=== PATIENT | female | born 1965 | race African-American/Black ===

== ENCOUNTER 2018-10-11 11:17 | Inpatient (IN) | payer OTHER ==
[2018-10-11 13:17] VITALS: BMI 31.1
--- NOTE | 2018-10-11 15:08 | HP ---
COWS - Scale Resting Pulse: 0= ID 80 or Below Sweatin=Flushed/Facial Moisture Restless Observation: 1= Difficult to Sit Still Pupil Size: 0= Normal to Room Light Bone or Joint Aches: 2= Severe Diffuse Aches Runny Nose/ Eye Tearin= Runny Nose/Eyes GI Upset > 30mins: 2= Nausea/Diarrhea Tremor Observation: 2= Slight Tremor Visible Yawning Observation: 2= >3x During Session Anxiety or Irritability: 2=Irritable/Anxious Goose Flesh Skin: 3=Piloerection COWS Score: 18 CIWA Score - Admission Criteria OASAS Guidelines: Admission for Medically Managed Detox: Requires at least one of the followin. CIWA greater than 12 2. Seizures within the past 24 hours 3. Delirium tremens within the past 24 hours 4. Hallucinations within the past 24 hours 5. Acute intervention needed for co occurring medical disorder 6. Acute intervention needed for co occurring psychiatric disorder 7. Severe withdrawal that cannot be handled at a lower level of care (continued vomiting, continued diarrhea, abnormal vital signs) requiring intravenous medication and/or fluids 8. Admission ROS S - HPI Chief Complaint: I need the help to stop the use of oxycodone. Allergies/Adverse Reactions: Allergies Allergy/AdvReac Type Severity Reaction Status Date / Time Penicillins AdvReac Severe Swelling Verified 10/11/18 12:55 History of Present Illness: pt is a 53yr old female with a history of oxycodone dependence seeking detox for treatment. Pt states she gets a Rx of oxycodone from a Dr. Sara Jacobo last prescribed on 09/27/2018 pt p/u from her pharmacy from [facility]. is unable to be contacted. Pt states she was abusing the oxy's and was brought to [facility] last night for withdrawals s/s. Pt was d/c this morning and referred to come to [facility] for detox. Exam Limitations: No Limitations - Ebola screening Have you traveled outside of the country in the last 21 days: No Have you had contact with anyone from an Ebola affected area: No Have you been sick,other than usual withdrawal symptoms: No Do you have a fever: No - Review of Systems Constitutional: Chills, Diaphoresis, Night Sweats, Changes in sleep EENT: reports: Nose Congestion, Dental Problems (missing teeth) Respiratory: reports: No Symptoms reported Cardiac: reports: Lightheadedness GI: reports: Diarrhea, Poor Fluid Intake, Vomiting, Abdominal cramping : reports: No Symptoms Reported Musculoskeletal: reports: Back Pain, Joint Pain, Muscle Weakness, Other (legs) Integumentary: reports: Sweating Neuro: reports: Headache, Tingling, Tremors Endocrine: reports: Excessive Sweating, Intolerance to Cold, Intolerance to Heat , Increased Hunger Hematology: reports: Blood Clots (on plavix) Psychiatric: reports: Judgement Intact, Mood/Affect Appropiate, Orientated x3, Agitated, Anxious Other Systems: Reviewed and Negative Patient History - Patient Medical History Hx Anemia: No Hx Asthma: Yes (albuterol) Hx Chronic Obstructive Pulmonary Disease (COPD): No Hx Cancer: No Hx Cardiac Disorders: Yes (on plavix for h/o blood clots) Hx Hypertension: No Hx Hypercholesterolemia: Yes (lipitor 10mg) Hx Pacemaker: No HX Cerebrovascular Accident: No Hx Seizures: No Hx Dementia: No Hx Diabetes: Yes (type 2 on metformin 500mg qdaily) Hx Gastrointestinal Disorders: No Hx Liver Disease: No Hx Genitourinary Disorders: No Hx Sexually Transmitted Disorders: No Hx Renal Disease (ESRD): No Hx Thyroid Disease: No Hx Human Immunodeficiency Virus (HIV): Yes (since age 39 o on current meds ) Hx Hepatitis C: No Hx Depression: No Hx Suicide Attempt: No Hx Bipolar Disorder: No Hx Schizophrenia: No Other Medical History: insomnia/anxiety - Patient Surgical History Past Surgical History: No - PPD History Previous Implant?: Yes Documented Results: Negative w/o proof PPD to be Administered?: Yes - Reproductive History Patient is a Female of Child Bearing Age (11 -55 yrs old): No - Smoking Cessation Smoking history: Current every day smoker Have you smoked in the past 12 months: Yes Aproximately how many cigarettes per day: 10 Hx Chewing Tobacco Use: No Initiated information on smoking cessation: Yes 'Breaking Loose' booklet given: 10/11/18 - Substance & Tx. History Hx Alcohol Use: No Hx Substance Use: Yes Substance Use Type: Heroin, Opiates Hx Substance Use Treatment: No - Substances abused Other Other (specify): OXYCODONE Substance route: Oral Frequency: Daily Amount used: 120 MG (4) 30 MG TAB Age of first use: 52 Date of last use: 10/10/18 Heroin Substance route: Inhalation Frequency: Daily Amount used: 10 bags Age of first use: 25 Date of last use: 10/10/18 Family Disease History - Family Disease History Family Disease History: Diabetes: Grandparent, Father, Mother (deseased), Brother, Sister Admission Physical Exam [facility] - Vital Signs Vital Signs: Vital Signs - 24 hr 10/11/18 10/11/18 13:09 14:56 Temperature 99.5 F 99.2 F Pulse Rate 80 80 Respiratory 17 17 Rate Blood Pressure 100/66 100/66 - Physical General Appearance: Yes: Appropriately Dressed, Moderate Distress, Obese, Tremorous, Irritable, Sweating, Anxious HEENTM: Yes: Hearing grossly Normal, Normal Voice, Nasal Congestion, Rhinorrhea Respiratory: Yes: Normal Breath Sounds, Rales, Wheezing Neck: Yes: No masses,lesions,Nodules Breast: Yes: Within Normal Limits Cardiology: Yes: Regular Rhythm, Regular Rate, S1, S2 Abdominal: Yes: Normal Bowel Sounds, Non Tender, Soft Genitourinary: Yes: Within Normal Limits Back: Yes: Normal Inspection Musculoskeletal: Yes: Back pain, Joint Stiffness, Muscle Pain Extremities: Yes: Non-Tender, Tremors Neurological: Yes: Fully Oriented, Alert, Normal Response Integumentary: Yes: Diaphoresis Lymphatic: Yes: Within Normal Limits - Diagnostic (1) Opioid dependence with withdrawal Current Visit: Yes Status: Chronic (2) H/O blood clots Current Visit: No Status: Chronic (3) Chronic leg pain Current Visit: Yes Status: Chronic Qualifiers: Laterality: bilateral Qualified Code(s): M79.604 - Pain in right leg; M79.605 - Pain in left leg; G89.29 - Other chronic pain (4) Nicotine dependence Current Visit: Yes Status: Chronic Qualifiers: Nicotine product type: cigarettes Substance use status: uncomplicated Qualified Code(s): F17.210 - Nicotine dependence, cigarettes, uncomplicated (5) HIV disease Current Visit: Yes Status: Chronic Comment: on current medication Cleared for Admission [facility] - Detox or Rehab [facility] Level of Care: Medically Managed Detox Regimen/Protocol: Methadone Breathalyzer - Breathalyzer Breathalyzer: 0 POC Urine test - Test device test lot number: [id number] Expiration date: 02/25/20 - Control test control: Yes - Result Urine Test Results: Negative - NO line present Urine Drug Screen - Test Device Lot number: [id number] Expiration date: 05/26/20 - Control Is test valid?: Yes - Results Drug screen NEGATIVE: No Urine drug screen results: FEN-Fentanyl, MOP-Opiates, OXY-Oxycodone, MTD- Methadone Inpatient Rehab Admission - Rehab Decision to Admit Inpatient rehab admission?: No
[2018-10-11] MEDS ORDERED: MENTHOL/PHENOL 1 EACH UD MM PRN (15:35)
[2018-10-11] MEDS ORDERED: hydrOXYzine PAMOATE 25 MG CAPSULE (FP) PO PRN (15:35)
[2018-10-11] MEDS ORDERED: MAGNESIUM CITRATE 300 ML BOTTLE PO PRN (15:35)
[2018-10-11] MEDS ORDERED: DICYCLOMINE HCL 10 MG CAPSULE PO PRN (15:35)
[2018-10-11] MEDS ORDERED: MELATONIN 5 MG TABLETS PO PRN (15:35)
[2018-10-11] MEDS ORDERED: cloNIDine HCL 0.1 MG TABLET PO PRN (15:35)
[2018-10-11] MEDS ORDERED: ACETAMINOPHEN 325 MG TABLET (FP) PO PRN (15:35)
[2018-10-11] MEDS ORDERED: MAG HYDROX/AL HYDROX/SIMETH 30 ML UNIT-DOSE CUP PO PRN (15:35)
[2018-10-11] MEDS ORDERED: MAGNESIUM HYDROX 2400MG/30ML ORAL SUSPENSION 30 ML CUP PO PRN (15:35)
[2018-10-11] MEDS ORDERED: IBUPROFEN 400 MG TABLET (FP) PO PRN ×2 (15:35)
[2018-10-11] MEDS ORDERED: BISMUTH SUBSALICYLATE 524 MG/30 ML UD PO PRN (15:35)
[2018-10-11] MEDS ORDERED: P-EPHED 60MG/TRIPROLIDI 2.5MG TABLET PO PRN (15:35)
[2018-10-11] MEDS ORDERED: ALBUTEROL SO4 2.5/IPRATROPIUM 0.5 INH SOL 3 ML VIAL.NEB. NEB ONE (16:15)
[2018-10-11] MEDS ORDERED: METHADONE HCL 10 MG TABLET (FOR DETOX USE ONLY) PO ONE ×2 (16:30→23:00)
[2018-10-11] MEDS: ALBUTEROL SO4 8 GM HFA INHALER IH SCH ×4 (16:48→23:18)
[2018-10-11] MEDS: BACLOFEN 10 MG TABLET (FP) PO SCH ×2 (16:49→23:18)
[2018-10-11] MEDS: ALBUTEROL SO4 2.5/IPRATROPIUM 0.5 INH SOL 3 ML VIAL.NEB. NEB PRN (19:31)
[2018-10-11] MEDS: clonazePAM 0.5 MG TABLET PO PRN (22:13)
[2018-10-11] MEDS: THIAMINE HCL 100 MG TABLET (FP) PO SCH (22:14)
[2018-10-12] MEDS: ALBUTEROL SO4 8 GM HFA INHALER IH SCH ×4 (05:27→12:31)
[2018-10-12] MEDS: ACETAMINOPHEN 325 MG TABLET (FP) PO PRN ×2 (07:11→19:19)
[2018-10-12] MEDS: BACLOFEN 10 MG TABLET (FP) PO SCH ×3 (07:19→23:09)
[2018-10-12] MEDS ORDERED: METHADONE HCL 10 MG TABLET (FOR DETOX USE ONLY) PO ONE (10:00)
[2018-10-12] MEDS: PRENATAL VITAMINS W/ FOLIC ACID TABLET (FP) PO SCH (10:40)
[2018-10-12] MEDS: CLOPIDOGREL BISULFATE 75 MG TABLET (FP) PO SCH (10:40)
[2018-10-12] MEDS: NICOTINE 21 MG/24 HOURS TOPICAL PATCH TD SCH (10:41)
[2018-10-12] MEDS: PATIENT'S OWN MEDICATION (NON-FORMULARY) (Darunavir/Cob/Emtri/Tenof Alaf [Symtuza 800-150- PO SCH (10:41)
[2018-10-12 10:55] LABS: ALBUMIN 3.2 g/dl (3.4-5.0); ALK PHOS 86 U/L (45-117); ANION GAP 2 MMOL/L (8-16); BILIRUBIN,TOTAL 0.5 mg/dL (0.2-1); BLOOD UREA NITROGEN 13 mg/dL (7-18); CALCIUM 8.9 mg/dL (8.5-10.1); CHLORIDE 104 mmol/L (98-107); CO2 32 mmol/L (21-32); CREATININE 0.6 mg/dL (0.55-1.3); GLUCOSE,RANDOM 108 mg/dL (74-106); POTASSIUM 4.1 mmol/L (3.5-5.1); SGOT/AST 20 U/L (15-37); SGPT/ALT 23 U/L (13-61); SODIUM 138 mmol/L (136-145); TOT PROT 6.6 g/dl (6.4-8.2)
[2018-10-12 11:02] LABS: HEMATOCRIT 44.2 % (32.4-45.2); HEMOGLOBIN 14.6 GM/dL (10.7-15.3); MCH 32.5 pg (25.7-33.7); MCHC 33.1 g/dl (32.0-36.0); MEAN CELL VOLUME 98.2 fl (80-96); MEAN PLT VOLUME 9.1 fl (7.5-11.1); PLATELET COUNT 187 K/MM3 (134-434); RDW 13.6 % (11.6-15.6); WHITE BLOOD COUNT 9.5 K/mm3 (4.0-10.0)
--- NOTE | 2018-10-12 12:16 | EKG ---
Test Reason : Blood Pressure : / mmHG Vent. Rate : 093 BPM Atrial Rate : 093 BPM P-R Int : 150 ms QRS Dur : 084 ms QT Int : 374 ms P-R-T Axes : 066 038 057 degrees QTc Int : 465 ms NORMAL SINUS RHYTHM NORMAL ECG NO PREVIOUS ECGS AVAILABLE Confirmed by JARON DAVENPORT MD ([id number]) on 10/12/2018 12:16:35 PM Referred By: Confirmed By:JARON DAVENPORT MD
--- NOTE | 2018-10-12 12:38 | PN ---
S COWS - Scale Resting Pulse: 2= VT 101-120 Sweatin=Flushed/Facial Moisture Restless Observation: 1= Difficult to Sit Still Pupil Size: 0= Normal to Room Light Bone or Joint Aches: 2= Severe Diffuse Aches Runny Nose/ Eye Tearin= Nasal Congestion GI Upset > 30mins: 0= None Tremor Observation of Outstretched Hands: 2= Slight Tremor Visible Yawning Observation: 2= >3x During Session Anxiety or Irritability: 2=Irritable/Anxious Goose Flesh Skin: 3=Piloerection COWS Score: 17 BHS Progress Note (SOAP) Subjective: restless chills sweats dry skin couple of bumps/rash to my left forearm shakes Objective: 10/12/18 12:35 Vital Signs Temperature 98.2 F 10/12/18 10:51 Pulse Rate 101 H 10/12/18 10:51 Respiratory Rate 18 10/12/18 10:51 Blood Pressure 114/77 10/12/18 10:51 O2 Sat by Pulse Oximetry (%) Laboratory Tests 10/11/18 10/11/18 10/12/18 15:41 16:46 05:25 WBC RBC Hgb Hct MCV MCH MCHC RDW Plt Count MPV Sodium Potassium Chloride Carbon Dioxide Anion Gap BUN Creatinine Creat Clearance w eGFR POC Glucometer 61 124 81 Random Glucose Calcium Total Bilirubin AST ALT Alkaline Phosphatase Total Protein Albumin RPR Titer 10/12/18 10/12/18 10/12/18 07:00 07:00 07:00 WBC 9.5 RBC 4.50 Hgb 14.6 Hct 44.2 MCV 98.2 H MCH 32.5 MCHC 33.1 RDW 13.6 Plt Count 187 MPV 9.1 Sodium 138 Potassium 4.1 Chloride 104 Carbon Dioxide 32 Anion Gap 2 L BUN 13 Creatinine 0.6 Creat Clearance w eGFR 104.57 POC Glucometer Random Glucose 108 H Calcium 8.9 Total Bilirubin 0.5 AST 20 ALT 23 Alkaline Phosphatase 86 Total Protein 6.6 Albumin 3.2 L RPR Titer Nonreactive labs noted aaox3 ambulating no acute distress Assessment: 10/12/18 12:35 withdrawal sx skin assessed noticed a couple of red bumps to left forearm, pt c/o of some itching. no other bumps to rest of body noted. Plan: continue detox increase fluids lidex cream ordered derrick-hydrin
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
[2018-10-12] MEDS: AMMONIUM LACTATE 12% LOTION 225 GM BOTTLE TP SCH ×2 (13:25→22:05)
[2018-10-12] MEDS: FLUOCINONIDE 0.05% CREAM (15 GM TUBE) TP SCH ×2 (13:26→22:06)
[2018-10-12] MEDS: ONDANSETRON *ODT* 4 MG TABLET SL PRN (14:32)
[2018-10-12] MEDS ORDERED: NICOTINE POLACRILEX 4 MG GUM BUC PRN (17:47)
--- NOTE | 2018-10-12 17:57 | PN ---
S Progress Note Note: Patient requested NCRT currently smokes 1 pack of cigarettes per day.
[2018-10-12] MEDS: ALBUTEROL SO4 2.5/IPRATROPIUM 0.5 INH SOL 3 ML VIAL.NEB. NEB PRN (19:24)
[2018-10-12] MEDS: clonazePAM 0.5 MG TABLET PO PRN (22:04)
[2018-10-12] MEDS: ALBUTEROL SO4 8 GM HFA INHALER IH PRN (22:04)
[2018-10-12] MEDS: THIAMINE HCL 100 MG TABLET (FP) PO SCH (22:05)
[2018-10-13] MEDS: ACETAMINOPHEN 325 MG TABLET (FP) PO PRN ×2 (02:27→10:14)
[2018-10-13] MEDS: ALBUTEROL SO4 2.5/IPRATROPIUM 0.5 INH SOL 3 ML VIAL.NEB. NEB PRN (02:37)
[2018-10-13] MEDS: FLUOCINONIDE 0.05% CREAM (15 GM TUBE) TP SCH ×3 (07:00→23:50)
[2018-10-13] MEDS: BACLOFEN 10 MG TABLET (FP) PO SCH ×3 (07:13→23:51)
[2018-10-13] MEDS ORDERED: METHADONE HCL 10 MG TABLET (FOR DETOX USE ONLY) PO ONE (10:00)
[2018-10-13] MEDS: PRENATAL VITAMINS W/ FOLIC ACID TABLET (FP) PO SCH (10:09)
[2018-10-13] MEDS: CLOPIDOGREL BISULFATE 75 MG TABLET (FP) PO SCH (10:09)
[2018-10-13] MEDS: NICOTINE 21 MG/24 HOURS TOPICAL PATCH TD SCH (10:10)
[2018-10-13] MEDS: AMMONIUM LACTATE 12% LOTION 225 GM BOTTLE TP SCH ×2 (10:10→23:50)
[2018-10-13] MEDS: PATIENT'S OWN MEDICATION (NON-FORMULARY) (Darunavir/Cob/Emtri/Tenof Alaf [Symtuza 800-150- PO SCH (10:11)
[2018-10-13] MEDS: ALBUTEROL SO4 8 GM HFA INHALER IH PRN (10:12)
[2018-10-13] MEDS ORDERED: guaiFENesin 200 MG/10 ML 10 ML UNIT-DOSE CUPS PO PRN (10:36)
[2018-10-13] MEDS ORDERED: FLUTICASONE PROP 0.05% 16 GM NASAL SPRAY NS SCH (10:45)
[2018-10-13] MEDS: ONDANSETRON *ODT* 4 MG TABLET SL PRN (12:19)
--- NOTE | 2018-10-13 13:54 | PN ---
BHS COWS - Scale Resting Pulse: 2= NE 101-120 Sweatin= Chills/Flushing Restless Observation: 1= Difficult to Sit Still Pupil Size: 0= Normal to Room Light Bone or Joint Aches: 1= Mild Discomfort Runny Nose/ Eye Tearin= Runny Nose/Eyes GI Upset > 30mins: 0= None Tremor Observation of Outstretched Hands: 0= None Yawning Observation: 1= 1-2x During Session Anxiety or Irritability: 2=Irritable/Anxious Goose Flesh Skin: 0=Smooth Skin COWS Score: 10 BHS Progress Note (SOAP) Subjective: c/o cough, seasonal allergies, chills, sweats, body aches Objective: 10/13/18 13:49 Vital Signs Temperature 98.7 F 10/13/18 11:36 Pulse Rate 101 H 10/13/18 11:36 Respiratory Rate 20 10/13/18 11:36 Blood Pressure 113/67 10/13/18 11:36 O2 Sat by Pulse Oximetry (%) 80 L 10/13/18 03:07 Laboratory Last Values WBC 9.5 K/mm3 (4.0-10.0) 10/12/18 07:00 RBC 4.50 M/mm3 (3.60-5.2) 10/12/18 07:00 Hgb 14.6 GM/dL (10.7-15.3) 10/12/18 07:00 Hct 44.2 % (32.4-45.2) 10/12/18 07:00 MCV 98.2 fl (80-96) H 10/12/18 07:00 MCH 32.5 pg (25.7-33.7) 10/12/18 07:00 MCHC 33.1 g/dl (32.0-36.0) 10/12/18 07:00 RDW 13.6 % (11.6-15.6) 10/12/18 07:00 Plt Count 187 K/MM3 (134-434) 10/12/18 07:00 MPV 9.1 fl (7.5-11.1) 10/12/18 07:00 Sodium 138 mmol/L (136-145) 10/12/18 07:00 Potassium 4.1 mmol/L (3.5-5.1) 10/12/18 07:00 Chloride 104 mmol/L (98-107) 10/12/18 07:00 Carbon Dioxide 32 mmol/L (21-32) 10/12/18 07:00 Anion Gap 2 MMOL/L (8-16) L 10/12/18 07:00 BUN 13 mg/dL (7-18) 10/12/18 07:00 Creatinine 0.6 mg/dL (0.55-1.3) 10/12/18 07:00 Creat Clearance w eGFR 104.57 (>60) 10/12/18 07:00 POC Glucometer 83 UNITS (80-120) 10/13/18 06:20 Random Glucose 108 mg/dL (74-106) H 10/12/18 07:00 Calcium 8.9 mg/dL (8.5-10.1) 10/12/18 07:00 Total Bilirubin 0.5 mg/dL (0.2-1) 10/12/18 07:00 AST 20 U/L (15-37) 10/12/18 07:00 ALT 23 U/L (13-61) 10/12/18 07:00 Alkaline Phosphatase 86 U/L (45-117) 10/12/18 07:00 Total Protein 6.6 g/dl (6.4-8.2) 10/12/18 07:00 Albumin 3.2 g/dl (3.4-5.0) L 10/12/18 07:00 RPR Titer Nonreactive (NONREACTIVE) 10/12/18 07:00 labs notes Aox3 no acute distress + rhinorrhea + cough no adventitious breath sounds full ROm ambulating in the unit withdrawal sx cough increase po fluids guefinessin prn flonase prn continue detox continue to monitor
--- NOTE | 2018-10-13 23:27 | PN ---
[facility] Progress Note Note: ASKED TO SEE PATIENT FOR HYPOXIA. O2 SAT 50'S, FEBRILE, LETHARGIC. PATIENT IS A POOR HISTORIAN AT THIS TIME DUE TO CHANGE IN MENTAL STATUS, LETHARGIC, PARTIALLY RESPONSIVE. PER STAFF 1 HOUR PRIOR CLIENT WAS NOTED OOB, AMBULATING , NAD A/OX3 BUT APPEARED "OVER MEDICATED" Vital Signs Temperature 102.2 F H 10/13/18 23:20 Pulse Rate 130 H 10/13/18 23:20 Respiratory Rate 20 10/13/18 23:20 Blood Pressure 134/70 10/13/18 23:20 O2 Sat by Pulse Oximetry (%) 80 L 10/13/18 03:07 Laboratory Tests 10/11/18 10/11/18 10/12/18 15:41 16:46 05:25 WBC RBC Hgb Hct MCV MCH MCHC RDW Plt Count MPV Sodium Potassium Chloride Carbon Dioxide Anion Gap BUN Creatinine Creat Clearance w eGFR POC Glucometer 61 124 81 Random Glucose Calcium Total Bilirubin AST ALT Alkaline Phosphatase Total Protein Albumin RPR Titer 10/12/18 10/12/18 10/12/18 07:00 07:00 07:00 WBC 9.5 RBC 4.50 Hgb 14.6 Hct 44.2 MCV 98.2 H MCH 32.5 MCHC 33.1 RDW 13.6 Plt Count 187 MPV 9.1 Sodium 138 Potassium 4.1 Chloride 104 Carbon Dioxide 32 Anion Gap 2 L BUN 13 Creatinine 0.6 Creat Clearance w eGFR 104.57 POC Glucometer Random Glucose 108 H Calcium 8.9 Total Bilirubin 0.5 AST 20 ALT 23 Alkaline Phosphatase 86 Total Protein 6.6 Albumin 3.2 L RPR Titer Nonreactive 10/12/18 10/13/18 10/13/18 16:25 06:20 17:02 WBC RBC Hgb Hct MCV MCH MCHC RDW Plt Count MPV Sodium Potassium Chloride Carbon Dioxide Anion Gap BUN Creatinine Creat Clearance w eGFR POC Glucometer 103 83 102 Random Glucose Calcium Total Bilirubin AST ALT Alkaline Phosphatase Total Protein Albumin RPR Titer 10/13/18 23:17 WBC RBC Hgb Hct MCV MCH MCHC RDW Plt Count MPV Sodium Potassium Chloride Carbon Dioxide Anion Gap BUN Creatinine Creat Clearance w eGFR POC Glucometer 276 Random Glucose Calcium Total Bilirubin AST ALT Alkaline Phosphatase Total Protein Albumin RPR Titer SEEN LYING IN BED AROUSABLE TO CALL OF NAME BUT IN/OUT OF RESPONSIVENESS TO VERBAL STIMULI X2 HEENT-NCAT ,PERRLA, EOMI, MMM NECK- NEG LAD CV- RRR LUNGS- +COURSE BREATH SOUNDS- CLIENT NOTED WITH WET COUGH/PRODUCTIVE THICK YELLOW SPUTUM- NON REBREATHER MASK O2 SAT 96% +USE OF ACCESSORY MUSCLES SKIN- HOT, MOIST, DIAPHORETIC A- R/O PNA, PE P-TRANSFER TO [facility] FOR EVAL REPORT GIVEN TO RESIDENT CHU ZAVALA
[2018-10-13] MEDS: THIAMINE HCL 100 MG TABLET (FP) PO SCH (23:51)
[2018-10-14 06:55] VITALS: BP 134/70; PULSE 130; TEMP 102.2
[2018-10-14] MEDS ORDERED: METHADONE HCL 10 MG TABLET (FOR DETOX USE ONLY) PO ONE (10:00)
[2018-10-15] MEDS ORDERED: METHADONE HCL 5 MG TABLET (FOR DETOX USE ONLY) PO ONE (06:00)
== END 2018-10-14 07:52 | disposition short-term general hospital (02) | DRG 773 ==
LOC: YASAS 11:17 → Y6N 15:54
PROVIDERS: ADMIT Surgery; ATTEND Surgery
PROC: HZ2ZZZZ Detoxification Services for Substance Abuse Treatment (ICD-10-PCS; principal; 2018-10-11)
DX: F11.23 Opioid dependence with withdrawal (principal); F17.210 Nicotine dependence, cigarettes, uncomplicated; F32.5 Major depressive disorder, single episode, in full remission; F43.10 Post-traumatic stress disorder, unspecified; F19.282 Other psychoactive substance dependence with psychoactive substance-induced sleep disorder; Z21 Asymptomatic human immunodeficiency virus [HIV] infection status; E78.5 Hyperlipidemia, unspecified; E11.9 Type 2 diabetes mellitus without complications; R09.02 Hypoxemia; R53.83 Other fatigue; R41.82 Altered mental status, unspecified; R05 Cough; M79.604 Pain in right leg; M79.605 Pain in left leg; G89.29 Other chronic pain; E66.9 Obesity, unspecified; Z68.31 Body mass index [BMI] 31.0-31.9, adult; Z98.84 Bariatric surgery status; Z79.01 Long term (current) use of anticoagulants; Z86.711 Personal history of pulmonary embolism; Z88.0 Allergy status to penicillin
CPT/HCPCS: 36415; 80053; 82962; 85027; 86593; 93005; 93010; 94640; J0475; Q0162

== ENCOUNTER 2018-10-13 23:56 | Inpatient (IN) | payer OTHER ==
--- NOTE | 2018-10-14 00:26 | PDOC ---
History of Present Illness <Stephenie Abbott - Last Filed: 10/14/18 03:06> - History of Present Illness Initial Comments: 10/14/18 00:18 53 yo F with h/o asthma, DM, HLD, HIV, mood disorder, blood clot (unspecified) BIBEMS from [facility] ( 2 [facility]) opioid dependence on Methadone maintenance who p/ w SOB, AMS. Received phone endorsement from outside rehabilitation facility. Patient was noted to be hypoxic 50's O2 sat on RA, imrpoved to 96 % NRB, Also noted to be febrile, with coarse lung sounds, and BS~276. [facility] 1000PM (10/14/18) as noted by staff, was up and walking today without difficulty. Patient at bedside partially verbal, poor historian, somnolent on encounter. PMHx: as noted above ROS: as noted SHx: Polysubstance abuse, nicotine dependence, methadone maintenance, in detox ( 10/11-10/13/18) Allergies: PCN <Andre Osborn - Last Filed: 10/14/18 04:24> - General Stated Complaint: SHORTNESS OF BREATH Time Seen by Provider: 10/14/18 00:12 Past History <Stephenie Abbott - Last Filed: 10/14/18 03:06> - Past Medical History Anemia: No Asthma: Yes (albuterol) Cancer: No Cardiac Disorders: Yes (on plavix for h/o blood clots) CVA: No COPD: No Dementia: No Diabetes: Yes (type 2 on metformin 500mg qdaily) GI Disorders: No Disorders: No HTN: No Hypercholesterolemia: Yes (lipitor 10mg) Kidney Stones: No Liver Disease: No Seizures: No Thyroid Disease: No - Reproductive History PID: No - Suicide/Smoking/Psychosocial Hx Smoking History: Current every day smoker Have you smoked in the past 12 months: Yes Number of Cigarettes Smoked Daily: 10 'Breaking Loose' booklet given: 10/11/18 Hx Alcohol Use: No Drug/Substance Use Hx: Yes Substance Use Type: Heroin, Opiates Hx Substance Use Treatment: No <Andre Osborn - Last Filed: 10/14/18 04:24> - Past Medical History Allergies/Adverse Reactions: Allergies Allergy/AdvReac Type Severity Reaction Status Date / Time Penicillins AdvReac Severe Swelling Verified 10/11/18 12:55 Home Medications: Ambulatory Orders Albuterol Sulfate Inhaler - [Ventolin Hfa Inhaler -] 2 inh PO Q4H 10/11/18 Cholecalciferol (Vitamin D3) [Vitamin D3] 2,000 unit PO DAILY 10/11/18 Clopidogrel Bisulfate [Plavix] 75 mg PO DAILY 10/11/18 Darunavir/Cob/Emtri/Tenof Alaf [Symtuza 362-106-920-10 mg Tab] 1 each PO DAILY 10/11/18 Metformin HCl [Metformin HCl ER] 500 mg PO DAILY 10/11/18 Multivitamin,Therapeutic [Thera] 1 each PO DAILY 10/11/18 Trazodone HCl 100 mg PO HS 10/11/18 Trazodone HCl 300 mg PO HS 10/11/18 Review of Systems - Review of Systems Comments:: 10/14/18 00:34 Unable to obtain 13 point ROS inspection d/t AMS. <Andre Osborn - Last Filed: 10/14/18 04:24> *Physical Exam - Vital Signs Last Vital Signs Temp Pulse Resp BP Pulse Ox 100.3 F H 134 H 20 132/83 98 10/14/18 00:10 10/14/18 00:10 10/14/18 00:10 10/14/18 00:10 10/14/18 00:10 <Stephenie Abbott - Last Filed: 10/14/18 03:06> - Physical Exam Comments: 10/14/18 00:34 GENERAL: Awake, Somnolent, but responsive to verbal stimuli, oriented to person and place, partially follows commands. HEAD: No signs of trauma, normocephalic, atraumatic EYES: PERRLA, EOMI, sclera anicteric, conjunctiva clear ENT: Auricles normal inspection, hearing grossly normal, nares patent, oropharynx clear without exudates. Moist mucosa NECK: Normal ROM, supple, no lymphadenopathy, JVD, or masses LUNGS: Coarse lung sounds throughout, snoring respirations. Diffuse wheezing. HEART: Regular rate and rhythm, normal S1 and S2, no murmurs, rubs or gallops, peripheral pulses normal and equal bilaterally. ABDOMEN: Soft, nontender, normoactive bowel sounds. No guarding, no rebound. No masses EXTREMITIES : Normal inspection, Normal range of motion, no edema. No clubbing or cyanosis. NEUROLOGICAL: Cranial nerves II through XII grossly intact. Mumbled/garbled speech, no focal sensorimotor deficits SKIN: Warm, Dry, normal turgor, no rashes or lesions noted ABDOMEN: Soft, nontender, normoactive bowel sounds. No guarding, no rebound. No masses EXTREMITIES : Normal inspection, Normal range of motion, no edema. No clubbing or cyanosis. <Andre Osborn - Last Filed: 10/14/18 04:24> ED Treatment Course - LABORATORY CBC & Chemistry Diagram: 10/14/18 01:15 10/14/18 01:15 - ADDITIONAL ORDERS Additional order review: Laboratory Results 10/14/18 10/14/18 10/14/18 01:15 01:15 01:15 PT with INR INR PTT (Actin FS) 29.1 VBG pH 7.32 POC VBG pCO2 67.1 H POC VBG pO2 58.9 H VBG HCO3 33.5 H VBG O2 Sat (Emeterio) 86.8 H VBG Base Excess 5.2 H Sodium 135 L Potassium 4.8 Chloride 99 Carbon Dioxide 33 H Anion Gap 3 L BUN 16 Creatinine 0.7 Creat Clearance w eGFR 87.53 Random Glucose 88 Lactic Acid Calcium 8.8 Magnesium Total Bilirubin 0.4 AST 33 ALT 28 Alkaline Phosphatase 83 LD Total 227 Creatine Kinase Creatine Kinase Index CK-MB (CK-2) Troponin I B-Natriuretic Peptide Total Protein 7.6 Albumin 3.6 10/14/18 10/14/18 10/14/18 01:15 01:15 01:15 PT with INR 12.50 INR 1.06 PTT (Actin FS) VBG pH POC VBG pCO2 POC VBG pO2 VBG HCO3 VBG O2 Sat (Emeterio) VBG Base Excess Sodium Potassium Chloride Carbon Dioxide Anion Gap BUN Creatinine Creat Clearance w eGFR Random Glucose Lactic Acid 0.8 Calcium Magnesium 2.0 Total Bilirubin AST ALT Alkaline Phosphatase LD Total Creatine Kinase 596 H Creatine Kinase Index 0.9 CK-MB (CK-2) 5.9 H Troponin I 1.25 H* B-Natriuretic Peptide 317.2 H Total Protein Albumin 10/14/18 01:15 RBC 4.48 MCV 96.9 H MCHC 33.3 RDW 13.5 MPV 8.4 Neutrophils % 78.9 Lymphocytes % 10.3 Monocytes % 10.1 Eosinophils % 0.2 Basophils % 0.5 - Medications Given in the ED: ED Medications Discontinued Medications Generic Name Dose Route Start Last Admin Trade Name Barbi PRN Reason Stop Dose Admin Acetaminophen 1,000 mg 10/14/18 01:51 10/14/18 01:53 Ofirmev Injection - IVPB 10/14/18 01:52 1,000 mg ONCE ONE Administration Sodium Chloride 500 mls @ 500 mls/hr 10/14/18 00:53 10/14/18 01:25 Normal Saline - IV 10/14/18 01:52 500 mls/hr ASDIR STA Administration Vancomycin HCl 1,000 mg/ 250 mls @ 250 mls/hr 10/14/18 01:27 10/14/18 02:13 Dextrose IVPB 10/14/18 02:26 250 mls/hr ONCE ONE Administration Protocol Morphine Sulfate 2 mg 10/14/18 02:18 10/14/18 02:58 Morphine Injection - IVPUSH 10/14/18 02:19 2 mg ONCE ONE Administration Naloxone HCl 0.4 mg 10/14/18 01:48 10/14/18 02:13 Narcan - IVPUSH 10/14/18 01:49 0.4 mg ONCE ONE Administration <Stephenie Abbott - Last Filed: 10/14/18 03:06> - LABORATORY CBC & Chemistry Diagram: 10/14/18 01:15 10/14/18 01:15 - RADIOLOGY Radiology Studies Ordered: 10/14/18 03:16 Patient Information: : 1965 Order Type: Preliminary Name: LAKSHMI BLACKWOOD Sex: F Study Description: CT CTA CHEST Modality: CT Location: [facility] Referring Physician: LUCAS SAGE Comments: Ollie Francisco MD wrote on Oct 14, 2018 at 03:11 AM: Referring Physician: LUCAS SAGE Patient Name: MERCED MARTINS THIS IS A PRELIMINARY REPORT FROM [facility] DATE OF SERVICE: 2018-10-14 02:44:31 IMAGES: [id number] EXAM: CHEST CTA HISTORY: Concern for pulmonary embolism COMPARISON: None. FINDINGS: Heart:: There are subpleural bullous changes Pericardium: not thickened Thoracic aorta and great vessels: Normal Superior vena cava and inferior vena cava: Normal CONFIDENTIALITY NOTICE: This information is intended only for the use of the recipient(s) named above. If you are not the intended recipient, or a person responsible for delivering it to the intended recipient, you are hereby notified that any disclosure, copying, distribution or use of any of the information contained in or attached to this transmission is STRICTLY PROHIBITED. If you have received this transmission in error, please immediately notify Imaging Occupational Health Physiotherapist and destroy the original transmission and its attachments without saving them in any manner [address] [facility] [address] [place] [address] Phone: [phone] ([phone]) Fax: Email: [email or web address]: [email or web address] Patient Information: : 1965 Order Type: Preliminary Name: LAKSHMI BLACKWOOD Sex: F Study Description: CT CTA CHEST Modality: CT Location: [facility] Referring Physician: LUCAS SAGE Pulmonary arteries: Main pulmonary artery segment measures 3.7 cm transversely which is enlarged. There are no pulmonary artery filling defects Thoracic esophagus: Normal Mediastinal lymph nodes: Normal Central airways: Normal Lungs: clear without focal consolidation Pleural spaces: Normal with no pneumothorax or pleural fluid Chest wall: Normal Superior abdomen: Normal IMPRESSION: Enlargement of the main pulmonary artery suggests a component of pulmonary artery hypertension. However, there are no filling defects or evidence for pulmonary embolism One or more of the following dose reduction techniques were used: automated exposure control, adjustment of the mA and/or kV according to patient size, use of iterative reconstructive technique. THIS DOCUMENT HAS BEEN ELECTRONICALLY SIGNED CONFIDENTIALITY NOTICE: This information is intended only for the use of the recipient(s) named above. If you are not the intended recipient, or a person responsible for delivering it to the intended recipient, you are hereby notified that any disclosure, copying, distribution or use of any of the information contained in or attached to this transmission is STRICTLY PROHIBITED. If you have received this transmission in error, please immediately notify Imaging Occupational Health Physiotherapist and destroy the original transmission and its attachments without saving them in any manner [address] [place] [address] [place] [address] Phone: [phone] ([phone]) Fax: Email: [email or web address]: [email or web address] Patient Information: : 1965 Order Type: Preliminary Name: LAKSHMI BLACKWOOD Sex: F Study Description: CT CTA CHEST Modality: CT Location: [facility] Referring Physician: LUCAS Francisco MD 10/14/2018 03:10 ISMA [place]. Please call Imaging Occupational Health Physiotherapist [phone] ([phone]) with questions. 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 EMS BS~276. Temp 100/3, HR 134, 20 RR, 98 % O2 on NRB, BP 132/83. Awake, Somnolent, but arousable and responsive to verbal stimuli, oriented to person and place, partially follows commands. Coarse lung sounds throughout, snoring respirations. Diffuse wheezing. ACS/IA r/o. PERC + PE, Wells score moderate risk PE. CTA r/o PE. Will consider possible overdose or ingestion, CHF, PNA, asthma/COPD. Will assess for cardiac dysarrythmias, hypoglycemia, electrolyte abnml, metabolic and toxic derangements, toxic or metabolic encephalopathy. acid-base disturbances, infection. Patient with known HIV. Will consider opportunistic infection. ED Course: CTA CHEST NS 500 NS 10/14/18 00:49 EKG: Sinus tachycardia HR 125, incomplete RBBB, Nml interval duration and axis. Nml R wave progression. Absent Q waves. 10/14/18 01:00 Patient hypoxic, AMS, tachycardic, plan to admit 10/14/18 01:28 10/14/18 02:18 Laboratory Tests 04/20/19 04/20/19 04/20/19 01:15 01:15 01:15 WBC 12.0 H Hgb 14.5 Hct 43.4 Plt Count 195 VBG pH POC VBG pCO2 POC VBG pO2 BUN Creatinine Lactic Acid 0.8 Creatine Kinase 596 H B-Natriuretic Peptide 317.2 H 10/14/18 10/14/18 01:15 01:15 WBC Hgb Hct Plt Count VBG pH 7.32 POC VBG pCO2 67.1 H POC VBG pO2 58.9 H BUN 16 Creatinine 0.7 Lactic Acid Creatine Kinase B-Natriuretic Peptide 10/14/18 02:18 Patient Awake, alert, agitated, following narcan 0.4 10/14/18 02:20 Troponin 1.25 Called Cardiology service [phone]. Dr. Beyer sales and production manager per answering service. Awaiting call back 10/14/18 02:27 Dr. Beyer agrees with management, CTA 100 mg Lovenox 10/14/18 02:30 Laboratory Tests 10/14/18 01:15 Creatine Kinase 596 H Creatine Kinase Index 0.9 CK-MB (CK-2) 5.9 H Troponin I 1.25 H* 10/14/18 03:16 CT CHEST: Enlargement of the main pulmonary artery suggests a component of pulmonary artery hypertension. However, there are no filling defects or evidence for pulmonary embolism 10/14/18 03:44 Pt. endorsed to medicine Admitted. 10/14/18 04:24 Patient refuses ABG <Andre Osborn - Last Filed: 10/14/18 04:24> *DC/Admit/Observation/Transfer - Discharge Dispostion Decision to Admit order: Yes <Stephenie Abbott - Last Filed: 10/14/18 03:06> - Discharge Dispostion Decision to Admit order: Yes <Andre Osborn - Last Filed: 10/14/18 04:24> Diagnosis at time of Disposition: Hypoxia, Pneumonia, HIV disease Altered mental state Qualifiers: Altered mental status type: somnolence Qualified Code(s): R40.0 - Somnolence - Discharge Dispostion Condition at time of disposition: Guarded
[2018-10-14] MEDS ORDERED: SODIUM CHLORIDE 500 ML IV STA (00:53)
[2018-10-14] MEDS ORDERED: ACETAMINOPHEN INJECTION 100 ML IVPB ONE (01:26)
[2018-10-14] MEDS ORDERED: VANCOMYCIN 1,000 MG in DEXTROSE 5%-WATER - 250 ML IVPB ONE (01:27)
[2018-10-14 01:32] LABS: BASO % 0.5 % (0-2.0); EOS % 0.2 % (0-4.5); HEMATOCRIT 43.4 % (32.4-45.2); HEMOGLOBIN 14.5 GM/dL (10.7-15.3); LYMPH % 10.3 % (8-40); MCH 32.3 pg (25.7-33.7); MCHC 33.3 g/dl (32.0-36.0); MEAN CELL VOLUME 96.9 fl (80-96); MEAN PLT VOLUME 8.4 fl (7.5-11.1); MONO % 10.1 % (3.8-10.2); NEUT % 78.9 % (42.8-82.8); PLATELET COUNT 195 K/MM3 (134-434); RBC 4.48 M/mm3 (3.60-5.2); RDW 13.5 % (11.6-15.6)
[2018-10-14 01:37] LABS: VENOUS PC02 67.1 mmHg (41-51); VENOUS PH 7.32 (7.31-7.41); VENOUS PO2 58.9 mmHg (30-40)
[2018-10-14 01:45] LABS: INR 1.06 (0.83-1.09); PROTHROMBIN TIME (PATIENT) 12.5 SEC (9.7-13.0)
[2018-10-14] MEDS ORDERED: NALOXONE HCL 0.4 MG/ML VIAL IVPUSH ONE ×2 (01:48→04:40)
[2018-10-14] MEDS ORDERED: ACETAMINOPHEN 1000 MG/100 ML VIAL (NON FORMULARY) IVPB ONE (01:51)
[2018-10-14] MEDS ORDERED: NALOXONE HCL 0.4 MG/ML VIAL ONE (01:54)
[2018-10-14] MEDS ORDERED: VANCOMYCIN 1 GRAM (PRE-DOCKED) 1,000 MG/250 ML BAG IVPB ONE ×2 (01:54→01:56)
[2018-10-14 02:02] LABS: ALBUMIN 3.6 g/dl (3.4-5.0); ALK PHOS 83 U/L (45-117); ANION GAP 3 MMOL/L (8-16); BILIRUBIN,TOTAL 0.4 mg/dL (0.2-1); BLOOD UREA NITROGEN 16 mg/dL (7-18); CALCIUM 8.8 mg/dL (8.5-10.1); CHLORIDE 99 mmol/L (98-107); CO2 33 mmol/L (21-32); CREATININE 0.7 mg/dL (0.55-1.3); GLUCOSE,RANDOM 88 mg/dL (74-106); LDH 227 U/L (84-246); POTASSIUM 4.8 mmol/L (3.5-5.1); SGOT/AST 33 U/L (15-37); SGPT/ALT 28 U/L (13-61); SODIUM 135 mmol/L (136-145); TOT PROT 7.6 g/dl (6.4-8.2)
[2018-10-14 02:15] LABS: N-TERMINAL BNP 317.2 pg/ml (5-125)
[2018-10-14] MEDS ORDERED: morphine CARPU-JECT 2 MG/1 ML DISP.SYRIN IVPUSH ONE (02:18)
[2018-10-14] MEDS ORDERED: ENOXAPARIN NA (PORCINE) 100 MG/1 ML DISP.SYRIN SQ SCH ×3 (02:20→10:00)
[2018-10-14] MEDS ORDERED: ENOXAPARIN NA (PORCINE) 100 MG/1 ML DISP.SYRIN SQ ONE ×2 (02:21→03:00)
[2018-10-14] MEDS ORDERED: morphine SULFATE 4 MG/ML VIAL ONE (02:23)
[2018-10-14] MEDS ORDERED: DOXYCYCLINE INJECTION 100 MG in DEXTROSE 5%-WATER - 150 ML IVPB ONE (02:43)
[2018-10-14] MEDS ORDERED: DOXYCYCLINE HYCLATE 100 MG VIAL ONE (03:11)
[2018-10-14 03:55] LABS: EPI CELLS 8.6 /HPF (0-5/HPF); URINE APPEARANCE CLOUDY; URINE BACTERIA 130.4 /hpf (NEGATIVE); URINE BILIRUBIN NEGATIVE (NEGATIVE); URINE CASTS 12 /lpf (0-8); URINE COLOR YELLOW; URINE GLUCOSE (UA) NEGATIVE (NEGATIVE); URINE KETONE NEGATIVE (NEGATIVE); URINE LEUK ESTERASE TRACE (NEGATIVE); URINE NITRITE NEGATIVE (NEGATIVE); URINE PROTEIN NEGATIVE (NEGATIVE); URINE RBC 3 /hpf (0-4); URINE UROBILINOGEN 0.2 mg/dL (0.2-1.0); URINE WBC 3 /hpf (0-5)
[2018-10-14 04:19] LABS: COCAINE, UR NEGATIVE ng/ml (CUTOFF=300); PHENCYCLIDINE,URINE NEGATIVE ng/ml (CUTOFF=25); URINE AMPHETAMINES NEGATIVE ng/ml (CUTOFF=500); URINE BARBITURATES NEGATIVE ng/ml (CUTOFF=200); URINE BENZODIAZEPINES NEGATIVE ng/ml (CUTOFF=200)
[2018-10-14 04:21] LABS: METHADONE, UR POSITIVE ng/ml (CUTOFF=300); OPIATES, URI POSITIVE ng/ml (CUTOFF=300)
--- NOTE | 2018-10-14 05:10 | PN ---
Teaching Attending Note Name of Resident: Paco Swartz ATTENDING PHYSICIAN STATEMENT I saw and evaluated the patient. Chart, data, imaging reviewed. I reviewed the resident's note and discussed the case with the resident. I agree with the resident's findings and plan as documented. SUBJECTIVE: 53 year old female with a past medical history of HTN, diabetes, HIV( unknown CD4 count), opioid abuse- on methadone, blood clots? sent in from [facility] for AMS and hypoxia, which responded to supplemental o2. Patient was given narcan and said to have responded. OBJECTIVE: Last Vital Signs Temp Pulse Resp BP Pulse Ox 100.3 F H 104 H 10 135/85 97 10/14/18 00:10 10/14/18 04:12 10/14/18 04:12 10/14/18 04:12 10/14/18 04:12 heent- pinpoint pupils b/l cv-s1+s2+ borderline tachy chest - clear b/l breath sounds abdomen - soft, obese, nt ext -no pedal edema skin- no track iraheta or rashes noted Abnormal Lab Results 10/14/18 10/14/18 10/14/18 01:15 01:15 01:15 WBC 12.0 H MCV 96.9 H Absolute Neuts (auto) 9.4 H POC VBG pCO2 POC VBG pO2 VBG HCO3 VBG O2 Sat (Emeterio) VBG Base Excess Sodium 135 L Carbon Dioxide 33 H Anion Gap 3 L Creatine Kinase 596 H CK-MB (CK-2) 5.9 H Troponin I 1.25 H* B-Natriuretic Peptide 317.2 H Opiates Screen Methadone Screen 10/14/18 10/14/18 01:15 03:24 WBC MCV Absolute Neuts (auto) POC VBG pCO2 67.1 H POC VBG pO2 58.9 H VBG HCO3 33.5 H VBG O2 Sat (Emeterio) 86.8 H VBG Base Excess 5.2 H Sodium Carbon Dioxide Anion Gap Creatine Kinase CK-MB (CK-2) Troponin I B-Natriuretic Peptide Opiates Screen Positive A* Methadone Screen Positive A* Imaging studies reviewed ASSESSMENT AND PLAN: #Hypoxemic/hypercapneic resp failure- likely secondary to opiate overdose given pinpoint pupils, prior response to narcan. No pneumonia identified. PE was r/o by CTA of chest. Aspiration pneumonia is also on differential -admit to telemetry -supplemental oxygen via NC- saturating -99% on 4L NC -ABG -low threshold for intubation -repeat narcan #SIRS/ Sepsis? unknown CD4 count-fever, tachycardia- no source of infection identified, possibly URI vs aspiration pneumonia. Penicillin allergy- unknown reaction. Given doxy/vancomycin. lactate was wnl. -add metronidazole to cover anaroebes -blood cultures -UA was wnl -respiratory viral pcr panel -fungitell -PJP DFA -sputum #AMS- likely from opiate OD -give Narcan -head CT to r/o acute intracranial insults -avoid any sedatives -bed rest -fall precautions -elevate head of bed -urine drug screen #R/o ACS -elevated troponin and CKMB, cannot r/o CA -ASA, plavix loading dose -lovenox therapeutic dose -echo -cardiology consult #HIV -c/w home dose ART meds -ID consult -CD4 count -VL -contact ID physician in AM DVT ppx -pt on lovenox
--- NOTE | 2018-10-14 05:13 | HP ---
CHIEF COMPLAINT: "Not feeling right" PCP: Dr. Genaro Walton HISTORY OF PRESENT ILLNESS: History is limited due to patient's minimal responsiveness. Patient is a 53 year old female with history of HIV (on Symtuza), polysubstane abuse (oxycodone, heroine -snorted), DVT (on Plavix), asthma, diabetes mellitus , hyperlipidemia, major depressive disorder, post traumatic stress disorder, presents from [facility] after being found poorly responsive and desaturating to low 50s. In ED patient was given Narcan 0.4mg IV which briefly improved patient 's mental status, however during my encounter patient is lethargic, and minimally responsive. Patient endorses that she has been coughing up yellow- colored sputum for the past two days, with associated fevers, chills, shortness of breath, and diffuse body pain. She does not recall and fall, loss of consciousness, bowel or bladder incontinence. ER course was notable for: (1) Narcan 0.4mg IV (2) EKG showing questionable RBBB, (3) Troponin 1.50, Lovenox 100mg subq Recent Travel: PAST MEDICAL HISTORY: PAST SURGICAL HISTORY: Social History: Smoking: admits (unable to obtain pack year history) Alcohol: denies Drugs: admits oxycodone, heroine -snorted. Denies injection drug use Family History: Mother: Diabetes mellitus, at 62 years old. Patient unable to provide father's medical history. Allergies Penicillins Adverse Reaction (Severe, Verified 10/11/18 12:55) Swelling HOME MEDICATIONS: Home Medications Medication Instructions Recorded Albuterol Sulfate Inhaler - 2 inh PO Q4H 10/11/18 [Ventolin Hfa Inhaler -] Cholecalciferol (Vitamin D3) 2,000 unit PO DAILY 10/11/18 [Vitamin D3] Clopidogrel Bisulfate [Plavix] 75 mg PO DAILY 10/11/18 Darunavir/Cob/Emtri/Tenof Alaf 1 each PO DAILY 10/11/18 [Symtuza [id number] mg Tab] Metformin HCl [Metformin HCl ER] 500 mg PO DAILY 10/11/18 Multivitamin,Therapeutic [Thera] 1 each PO DAILY 10/11/18 Trazodone HCl 100 mg PO HS 10/11/18 Trazodone HCl 300 mg PO HS 10/11/18 REVIEW OF SYSTEMS CONSTITUTIONAL: Admits: fever, chills, diaphoresis, generalized weakness, malaise. HEENT: Absent: rhinorrhea, nasal congestion, throat pain, throat swelling, difficulty swallowing, mouth swelling, ear pain, eye pain, CARDIOVASCULAR: Absent: chest pain, palpitations, irregular heart rate, peripheral edema RESPIRATORY: Admits: productive cough, shortness of breath, wheezing. Absent: orthopnea, stridor, hemoptysis GASTROINTESTINAL: Admits: nausea, Absent: abdominal pain, abdominal distension, vomiting, diarrhea , constipation, melena, hematochezia GENITOURINARY: Absent: dysuria, frequency, urgency, hesitancy, hematuria, flank pain, genital pain MUSCULOSKELETAL: Admits: diffuse myalgias, arthralgias. SKIN: Absent: rash, itching, pallor NEUROLOGIC: Admits: headache. Absent: focal weakness or paresthesias, dizziness, bladder or bowel incontinence PSYCHIATRIC: Absent: suicidal or homicidal ideation, hallucinations. PHYSICAL EXAMINATION Vital Signs - 24 hr 10/14/18 10/14/18 00:10 04:12 Temperature 100.3 F H Pulse Rate 134 H Pulse Rate [ 104 H Right] Respiratory 20 10 Rate Blood Pressure 132/83 Blood Pressure 135/85 [Left Arm] O2 Sat by Pulse 98 97 Oximetry (%) GENERAL: Patient is sleepy, minimally responsive, in no acute distress. HEAD: Normocephalic, atraumatic. EYES: Pupils 1mm bilaterally. Extraocular movements intact without nystagmus. Conjunctiva injected bilaterally. No jaundice. EARS, NOSE, THROAT: Oropharynx clear without exudates. Moist mucous membranes. NECK: Supple without lymphadenopathy, or JVD. LUNGS: Breath sounds equal, clear to auscultation bilaterally. No wheezes, and no crackles. No accessory muscle use. HEART: Regular rate and rhythm, normal S1 and S2 without murmur, rub or gallop. ABDOMEN: Obese. Soft, not distended, nontender to light and deep palpation x4 quadrants. No guarding, no rebound tenderness. Normoactive bowel sounds x4 quadrants. MUSCULOSKELETAL: Normal range of motion at all joints. No bony deformities or tenderness. UPPER EXTREMITIES: 2+ radial pulses bilaterally, warm, well-perfused. No cyanosis. No clubbing. LOWER EXTREMITIES: 2+ dorsalis pedis pulses bilaterally, warm, well-perfused. No calf tenderness, no peripheral edema bilaterally NEUROLOGICAL: Cranial nerves II-XII intact. Patient freely moves all 4 extremities equally. No gross focal deficits. PSYCHIATRIC: Appropriate mood and affect upon my encounter. SKIN: Warm, diaphoretic. No rashes or lesions noted. Laboratory Results - last 24 hr 10/14/18 10/14/18 10/14/18 01:15 01:15 01:15 WBC 12.0 H RBC 4.48 Hgb 14.5 Hct 43.4 MCV 96.9 H MCH 32.3 MCHC 33.3 RDW 13.5 Plt Count 195 MPV 8.4 Absolute Neuts (auto) 9.4 H Neutrophils % 78.9 Lymphocytes % 10.3 Monocytes % 10.1 Eosinophils % 0.2 Basophils % 0.5 Nucleated RBC % 0 PT with INR INR PTT (Actin FS) VBG pH POC VBG pCO2 POC VBG pO2 VBG HCO3 VBG O2 Sat (Emeterio) VBG Base Excess Sodium Potassium Chloride Carbon Dioxide Anion Gap BUN Creatinine Creat Clearance w eGFR Random Glucose Lactic Acid 0.8 Calcium Magnesium 2.0 Total Bilirubin AST ALT Alkaline Phosphatase LD Total Creatine Kinase 596 H Creatine Kinase Index 0.9 CK-MB (CK-2) 5.9 H Troponin I 1.25 H* B-Natriuretic Peptide 317.2 H Total Protein Albumin Urine Color Urine Appearance Urine pH Ur Specific [place] Urine Protein Urine Glucose (UA) Urine Ketones Urine Blood Urine Nitrite Urine Bilirubin Urine Urobilinogen Ur Leukocyte Esterase Urine WBC (Auto) Urine RBC (Auto) Urine Casts (Auto) U Epithel Cells (Auto) Urine Bacteria (Auto) Opiates Screen Methadone Screen Barbiturate Screen Phencyclidine Screen Ur Amphetamines Screen MDMA (Ecstasy) Screen Benzodiazepines Screen Cocaine Screen U Marijuana (THC) Screen Influenza A (Rapid) Influenza B (Rapid) 10/14/18 10/14/18 10/14/18 01:15 01:15 01:15 WBC RBC Hgb Hct MCV MCH MCHC RDW Plt Count MPV Absolute Neuts (auto) Neutrophils % Lymphocytes % Monocytes % Eosinophils % Basophils % Nucleated RBC % PT with INR 12.50 INR 1.06 PTT (Actin FS) VBG pH 7.32 POC VBG pCO2 67.1 H POC VBG pO2 58.9 H VBG HCO3 33.5 H VBG O2 Sat (Emeterio) 86.8 H VBG Base Excess 5.2 H Sodium 135 L Potassium 4.8 Chloride 99 Carbon Dioxide 33 H Anion Gap 3 L BUN 16 Creatinine 0.7 Creat Clearance w eGFR 87.53 Random Glucose 88 Lactic Acid Calcium 8.8 Magnesium Total Bilirubin 0.4 AST 33 ALT 28 Alkaline Phosphatase 83 LD Total 227 Creatine Kinase Creatine Kinase Index CK-MB (CK-2) Troponin I B-Natriuretic Peptide Total Protein 7.6 Albumin 3.6 Urine Color Urine Appearance Urine pH Ur Specific [place] Urine Protein Urine Glucose (UA) Urine Ketones Urine Blood Urine Nitrite Urine Bilirubin Urine Urobilinogen Ur Leukocyte Esterase Urine WBC (Auto) Urine RBC (Auto) Urine Casts (Auto) U Epithel Cells (Auto) Urine Bacteria (Auto) Opiates Screen Methadone Screen Barbiturate Screen Phencyclidine Screen Ur Amphetamines Screen MDMA (Ecstasy) Screen Benzodiazepines Screen Cocaine Screen U Marijuana (THC) Screen Influenza A (Rapid) Influenza B (Rapid) 10/14/18 10/14/18 10/14/18 01:15 01:41 03:24 WBC RBC Hgb Hct MCV MCH MCHC RDW Plt Count MPV Absolute Neuts (auto) Neutrophils % Lymphocytes % Monocytes % Eosinophils % Basophils % Nucleated RBC % PT with INR INR PTT (Actin FS) 29.1 VBG pH POC VBG pCO2 POC VBG pO2 VBG HCO3 VBG O2 Sat (Emeterio) VBG Base Excess Sodium Potassium Chloride Carbon Dioxide Anion Gap BUN Creatinine Creat Clearance w eGFR Random Glucose Lactic Acid Calcium Magnesium Total Bilirubin AST ALT Alkaline Phosphatase LD Total Creatine Kinase Creatine Kinase Index CK-MB (CK-2) Troponin I B-Natriuretic Peptide Total Protein Albumin Urine Color Yellow Urine Appearance Cloudy Urine pH 5.0 Ur Specific [place] 1.028 Urine Protein Negative Urine Glucose (UA) Negative Urine Ketones Negative Urine Blood Negative Urine Nitrite Negative Urine Bilirubin Negative Urine Urobilinogen 0.2 Ur Leukocyte Esterase Trace Urine WBC (Auto) 3 Urine RBC (Auto) 3 Urine Casts (Auto) 12 U Epithel Cells (Auto) 8.6 Urine Bacteria (Auto) 130.4 Opiates Screen Methadone Screen Barbiturate Screen Phencyclidine Screen Ur Amphetamines Screen MDMA (Ecstasy) Screen Benzodiazepines Screen Cocaine Screen U Marijuana (THC) Screen Influenza A (Rapid) Negative Influenza B (Rapid) Negative 10/14/18 03:24 WBC RBC Hgb Hct MCV MCH MCHC RDW Plt Count MPV Absolute Neuts (auto) Neutrophils % Lymphocytes % Monocytes % Eosinophils % Basophils % Nucleated RBC % PT with INR INR PTT (Actin FS) VBG pH POC VBG pCO2 POC VBG pO2 VBG HCO3 VBG O2 Sat (Emeterio) VBG Base Excess Sodium Potassium Chloride Carbon Dioxide Anion Gap BUN Creatinine Creat Clearance w eGFR Random Glucose Lactic Acid Calcium Magnesium Total Bilirubin AST ALT Alkaline Phosphatase LD Total Creatine Kinase Creatine Kinase Index CK-MB (CK-2) Troponin I B-Natriuretic Peptide Total Protein Albumin Urine Color Urine Appearance Urine pH Ur Specific [place] Urine Protein Urine Glucose (UA) Urine Ketones Urine Blood Urine Nitrite Urine Bilirubin Urine Urobilinogen Ur Leukocyte Esterase Urine WBC (Auto) Urine RBC (Auto) Urine Casts (Auto) U Epithel Cells (Auto) Urine Bacteria (Auto) Opiates Screen Positive A* Methadone Screen Positive A* Barbiturate Screen Negative Phencyclidine Screen Negative Ur Amphetamines Screen Negative MDMA (Ecstasy) Screen Negative Benzodiazepines Screen Negative Cocaine Screen Negative U Marijuana (THC) Screen Negative Influenza A (Rapid) Influenza B (Rapid) ASSESSMENT/PLAN: Patient is a 53 year old female with history of HIV (on Symtuza), polysubstane abuse (oxycodone, heroine -snorted), DVT (on Plavix), asthma, diabetes mellitus , hyperlipidemia, major depressive disorder, post traumatic stress disorder, presents from [facility] after being found poorly responsive and desaturating to low 50s. Acute hypoxemic, hypercapnic respiratory failure -Chest radiograph shows no acute infiltrates upon my read. Awaiting final report. -CTA preliminary reading negative for pulmonary embolism. Awaiting final report. -VBG shows retaining CO2. In addition to patient's opiate abuse history, concern for hypoventilation as cause of respiratory failure. -Follow ABG -As patient was found minimally responsive, concern for sepsis secondary to aspiration. Patient febrile to Tmax 102.2F, with WBC 12. Patient received Vancomycin and Doxycycline in ED. Will add on Flagyl 50mg IV one time dose. -Follow blood , and urine cultures. -Influenza A/ B negative. -ID consult (Dr. Porras) Acute metabolic encephalopathy -CT head preliminary report negative for intracranial hemorrhage. -Patient received Narcan 0.4mg IV push x2 doses -Follow urine toxicology -Follow ammonia level -CPK 595. Concern for rhabdomyolysis. Will trend, and hydrate aggressively. -Fall precautions -Aspiration precautions; elevate head of bed 30-45 degrees Troponinemia -EKG shows sinus tachycardia at 125BPM. Questionable, incomplete RBBB. -Troponin 1.50 upon admission. Will trend -Lovenox 100mg subq Q12 hours -Loading dose Plavix 300mg PO. Will continue with home Plavix 75mg PO daily -Loading dose Aspirin 325mg PO. Will continue with Aspirin 81mg PO daily. -Begin Atorvastatin 40mg PO HS -Follow Cardiac ECHO -Cardiology consult (Dr. Beyer) Polysubstance abuse -Currently COWs score of 9 - 10 -Discussed with [facility] who note patient was admitted 10/11, and started on Methadone taper at 30mg. Today's dose should be 10mg, followed by 5mg tomorrow to complete taper. -Given concern for opiate overdose, currently holding Methadone to minimize sedation. -Monitor for signs of increasing opiate withdrawal -Fall precautions, aspiration precautions. -Dr. Hernandez consulted. Asthma -Will need medicine reconciliation to ensure patient's home treatment -DuoNebs Q4 hours PRN for shortness of breath -Maintain oxygen saturation greater than 90% History of HIV -Uncertain last CD4 count -Continue Symtuza -Follow CD4 count -ID consult (Dr. Porras) appreciated History of DVT -Will need to obtain further history regarding which leg(s) affected, and when the clots occurred. -Patient currently on therapeutic dose Lovenox. Patient receiving Aspirin, and Plavix. Diabetes mellitus -Follow HbA1c -Insulin sliding scale Q6 hours -Fingerstick blood glucose monitoring Q6 hours FEN -IV normal saline at 150mL/ hour -Hyponatremia. Follow CMP -NPO while altered Prophylaxis -Patient is receiving therapeutic dose Lovenox 100mg subq Q12 hours Disposition -Admit to Telemetry floor. Visit type - Emergency Visit Emergency Visit: Yes ED Registration Date: 10/14/18 Care time: The patient presented to the Emergency Department on the above date and was hospitalized for further evaluation of their emergent condition. - New Patient This patient is new to me today: Yes Date on this admission: 10/14/18 - Critical Care Critical Care patient: No
[2018-10-14] MEDS ORDERED: ATORVASTATIN CA 40 MG TABLET (FP) PO ONE (05:29)
[2018-10-14 05:30] LABS: HEMATOCRIT 42.8 % (32.4-45.2); HEMOGLOBIN 14.2 GM/dL (10.7-15.3); MCH 32.2 pg (25.7-33.7); MCHC 33.2 g/dl (32.0-36.0); MEAN CELL VOLUME 97.1 fl (80-96); MEAN PLT VOLUME 8.4 fl (7.5-11.1); PLATELET COUNT 194 K/MM3 (134-434); RBC 4.41 M/mm3 (3.60-5.2); RDW 13.5 % (11.6-15.6); WHITE BLOOD COUNT 11.9 K/mm3 (4.0-10.0)
[2018-10-14] MEDS ORDERED: SODIUM CHLORIDE 1,000 ML IV SCH (05:30)
[2018-10-14] MEDS ORDERED: CLOPIDOGREL BISULFATE 300 MG TABLET PO ONE (05:42)
[2018-10-14] MEDS ORDERED: ASPIRIN 325 MG TABLET PO ONE (05:42)
[2018-10-14] MEDS ORDERED: ASPIRIN 325 MG TABLET ONE (05:48)
[2018-10-14] MEDS ORDERED: CLOPIDOGREL BISULFATE 300 MG TABLET ONE (05:48)
[2018-10-14 06:22] LABS: ALBUMIN 3.4 g/dl (3.4-5.0); ALK PHOS 73 U/L (45-117); ANION GAP 2 MMOL/L (8-16); BILIRUBIN,TOTAL 0.4 mg/dL (0.2-1); BLOOD UREA NITROGEN 13 mg/dL (7-18); CALCIUM 8.5 mg/dL (8.5-10.1); CHLORIDE 103 mmol/L (98-107); CHOLESTEROL 180 mg/dL (50-200); CO2 34 mmol/L (21-32); CREATININE 0.6 mg/dL (0.55-1.3); GLUCOSE,RANDOM 82 mg/dL (74-106); HDL CHOLESTEROL 63 mg/dL (40-60); PHOSPHOROUS 4.6 mg/dL (2.5-4.9); POTASSIUM 4.4 mmol/L (3.5-5.1); SGOT/AST 46 U/L (15-37); SGPT/ALT 29 U/L (13-61); SODIUM 139 mmol/L (136-145); TOT PROT 6.7 g/dl (6.4-8.2); TRIGLYCERIDES 48 mg/dL (0-150)
[2018-10-14] MEDS: SODIUM CHLORIDE 1,000 ML IV SCH ×2 (06:40→13:57)
[2018-10-14] MEDS: INSULIN SLIDING SCALE (NOVOLOG) 1 VIAL SQ SCH ×4 (06:45→23:21)
--- NOTE | 2018-10-14 08:16 | HOSP ---
Subjective - Review of Symptoms Subjective: pt evaluated bedside. is lethargic but is easily arrousable to verbal stimuli. limited hx due to lethargy states she was feeling "off" yesterday at [facility] but can not provide more detail of what was worrisome. has admits to productive cough of yellow sputum but unclear how many days. states she was at [facility] for her "pill problem" and denies using anything other than what was given to her at [facility]. this is her first time at [facility]. denies CP, SOB, fever, chills, N/V/C/D or sick contacts unable to obtain additional information at this time Current Medications Generic Name Dose Route Start Last Admin Trade Name Freq PRN Reason Stop Dose Admin Aspirin 81 mg 10/15/18 10:00 Asa - PO DAILY [facility] Atorvastatin Calcium 40 mg 10/14/18 22:00 Lipitor - PO HS SMITH Clopidogrel Bisulfate 75 mg 10/15/18 10:00 Plavix - PO DAILY [facility] Enoxaparin Sodium 100 mg 10/14/18 10:00 Lovenox - SQ BID [facility] Sodium Chloride 1,000 mls @ 150 mls/hr 10/14/18 06:33 10/14/18 06:40 Normal Saline - IV Not Given ASDIR [facility] Insulin Aspart 1 vial 10/14/18 05:30 10/14/18 06:45 Novolog Vial Sliding Scale - SQ Not Given Q6H [facility] Protocol Non-Formulary Medication 1 each 10/14/18 10:00 Darunavir/Cob/Emtri/Tenof Alaf [Symtuza [id number] Mg Tab] PO DAILY [facility] Last Vital Signs Temp Pulse Resp BP Pulse Ox 98.7 F 107 H 20 96/52 L 96 10/14/18 06:27 10/14/18 07:10 10/14/18 07:10 10/14/18 07:10 10/14/18 07:10 General lethargic, responds to verbal stimuli HEENT PERRL CV S1 S2 tachy Lungs CTA B/L no wheezing or rales. poor inspiratory effort Abdomen soft NT/ND obese Extremities no pedal edema or calf tenderness CBCD WBC 11.9 K/mm3 (4.0-10.0) H 10/14/18 05:10 RBC 4.41 M/mm3 (3.60-5.2) 10/14/18 05:10 Hgb 14.2 GM/dL (10.7-15.3) 10/14/18 05:10 Hct 42.8 % (32.4-45.2) 10/14/18 05:10 MCV 97.1 fl (80-96) H 10/14/18 05:10 MCHC 33.2 g/dl (32.0-36.0) 10/14/18 05:10 RDW 13.5 % (11.6-15.6) 10/14/18 05:10 Plt Count 194 K/MM3 (134-434) 10/14/18 05:10 MPV 8.4 fl (7.5-11.1) 10/14/18 05:10 CMP Sodium 139 mmol/L (136-145) 10/14/18 05:10 Potassium 4.4 mmol/L (3.5-5.1) 10/14/18 05:10 Chloride 103 mmol/L (98-107) 10/14/18 05:10 Carbon Dioxide 34 mmol/L (21-32) H 10/14/18 05:10 Anion Gap 2 MMOL/L (8-16) L 10/14/18 05:10 BUN 13 mg/dL (7-18) 10/14/18 05:10 Creatinine 0.6 mg/dL (0.55-1.3) 10/14/18 05:10 Creat Clearance w eGFR 104.57 (>60) 10/14/18 05:10 Random Glucose 82 mg/dL (74-106) 10/14/18 05:10 Calcium 8.5 mg/dL (8.5-10.1) 10/14/18 05:10 Total Bilirubin 0.4 mg/dL (0.2-1) 10/14/18 05:10 AST 46 U/L (15-37) H 10/14/18 05:10 ALT 29 U/L (13-61) 10/14/18 05:10 Alkaline Phosphatase 73 U/L (45-117) 10/14/18 05:10 Total Protein 6.7 g/dl (6.4-8.2) 10/14/18 05:10 Albumin 3.4 g/dl (3.4-5.0) 10/14/18 05:10 CARDIAC ENZYMES Creatine Kinase 1211 U/L (26-192) H 10/14/18 05:10 Troponin I 1.76 ng/ml (0.00-0.05) H* 10/14/18 05:10 A/P 53yo F with PMH HTN, DM, HIV on HARRT and continuous opiate dependence was at [facility] for detox and was found to be hypoxic with altered sensorium and here found to have elevated troponins 1. Acute hypoxic respiratory failure- found with SpO2 80's which improved on NRB and currently 95% on 3L NC. CTA done to r/o PE. scan is negative and no signs of consolidation on my read, will need official report. pt denies using substances that could have caused poor mentation and inability to protect airways. started on doxy/vanco/flagyl. Cx sent. ID consulted. 2. Acute toxic metabolic encephalopathy- responded to narcan x2. was on methadone detox and received 20mg earlier in the day part of program. received 30mg day prior. appears lethargic which could be due to lack of rest last night during admission process. will reassess. aspiration precautions. will hold any sedating medications at this time 3. Tropinemia- Trop flat trend 1.25-1.75. more likely demand due to hypoxia and tachycardia. received asa/plavix/full dose lovenox. will repeat 3rd troponin if not elevated would consider stopping lovenox and plavix. F/u echo. would benefit from ischemia eval possibly as outpatient. Cardio consulted. cont asa 4. Sepsis due to suspected PNA- Tm 100.3, tachycardia with leukocytosis. all improving. awaiting official CT read. on doxy/vanco/Flagyl. awaiting ID recommendations. flu negative 5. Opiate withdrawal- currently low COWS. would hold on methadone at the present. was scheduled for methadone 10mg today and 5mg tomorrow when detox would be complete. will give 10mg once mental status improves. correction to previous notes as pt does NOT take methadone at home as this is only part of detox program. will assess if interested in rehab when mental status improved. detox consulted 6. HIV- on HARRT. does not know CD4 count. levels sent. cont therapy. ID on board 7. DM- hold oral agents. iss and BGM. check A1c 8. HTN- currently hypotensive. would hold antihypertensives. start as needed 9. DVT ppx- will switch to prophylactic lovenox dosing Physical Examination Vital Signs: Vital Signs Temperature 98.7 F 10/14/18 06:27 Pulse Rate 107 H 10/14/18 07:10 Respiratory Rate 20 10/14/18 07:10 Blood Pressure 96/52 L 10/14/18 07:10 O2 Sat by Pulse Oximetry (%) 96 10/14/18 07:10 Labs: CBC, BMP 10/14/18 05:10 10/14/18 05:10
--- NOTE | 2018-10-14 09:52 | CON.CARD ---
Consult Consult Specialty:: Cardiology Referred by:: Medicine Reason for Consultation:: elevated trop - History of Present Illness Chief Complaint: unresponsive History of Present Illness: 53F h/o HIV, opiate abuse, "blood clots," asthma, DM, HLD p/w alt mental status , hypoxia. Given Narcan in ED with improvement. Also has had cough, fevers, chills, no chest pain. Trop 1.5 in ER, received therapeutic lovenox. Currently no chest pain, palps, dyspnea, feels weak. - Alcohol/Substance Use Hx Alcohol Use: No - Smoking History Smoking history: Current every day smoker Have you smoked in the past 12 months: Yes Aproximately how many cigarettes per day: 10 Home Medications - Allergies Allergies/Adverse Reactions: Allergies Allergy/AdvReac Type Severity Reaction Status Date / Time Penicillins AdvReac Severe Swelling Verified 10/11/18 12:55 - Home Medications Home Medications: Ambulatory Orders Albuterol Sulfate Inhaler - [Ventolin Hfa Inhaler -] 2 inh PO Q4H 10/11/18 Cholecalciferol (Vitamin D3) [Vitamin D3] 2,000 unit PO DAILY 10/11/18 Clopidogrel Bisulfate [Plavix] 75 mg PO DAILY 10/11/18 Darunavir/Cob/Emtri/Tenof Alaf [Symtuza [id number] mg Tab] 1 each PO DAILY 10/11/18 Metformin HCl [Metformin HCl ER] 500 mg PO DAILY 10/11/18 Multivitamin,Therapeutic [Thera] 1 each PO DAILY 10/11/18 Trazodone HCl 100 mg PO HS 10/11/18 Trazodone HCl 300 mg PO HS 10/11/18 Family Disease History - Family Disease History Family Disease History: Diabetes: Grandparent, Father, Mother (deseased), Brother, Sister Review of Systems - Review of Systems Constitutional: reports: No Symptoms Eyes: reports: No Symptoms HENT: reports: No Symptoms Neck: reports: No Symptoms Cardiovascular: reports: No Symptoms Respiratory: reports: No Symptoms Gastrointestinal: reports: No Symptoms Genitourinary: reports: No Symptoms Musculoskeletal: reports: No Symptoms Integumentary: reports: No Symptoms Neurological: reports: No Symptoms Endocrine: reports: No Symptoms Hematology/Lymphatic: reports: No Symptoms Psychiatric: reports: No Symptoms Vital Signs: Vital Signs Temperature 98.7 F 10/14/18 06:27 Pulse Rate 107 H 10/14/18 07:10 Respiratory Rate 20 10/14/18 07:10 Blood Pressure 96/52 L 10/14/18 07:10 O2 Sat by Pulse Oximetry (%) 96 10/14/18 07:10 Constitutional: Yes: No Distress, Calm Eyes: Yes: Conjunctiva Clear, EOM Intact HENT: Yes: Atraumatic, Normocephalic Neck: Yes: Supple, Trachea Midline Respiratory: Yes: Regular, Wheezes (diffuse expiratory wheezes) Gastrointestinal: Yes: Normal Bowel Sounds, Soft Cardiovascular: Yes: Regular Rate and Rhythm JVD: No Carotid Bruit: No PMI: Non-Displaced Heart Sounds: Yes: S1, S2 Murmur: No: Systolic Murmur Musculoskeletal: No: Back Pain Extremities: No: Cold Edema: No Peripheral Pulses WNL: Yes Peripheral Pulses: 2+ Left Doralis Pedis, 2+ Right Dorsalis Pedis Integumentary: No: Jaundice Neurological: Yes: Alert, Oriented Psychiatric: No: Agitated - Other Data Labs, Other Data: CBC, BMP 10/14/18 05:10 10/14/18 05:10 INR, PTT INR 1.06 (0.83-1.09) 10/14/18 01:15 Troponin, BNP 10/14/18 10/14/18 01:15 05:10 Troponin I 1.25 H* 1.76 H* B-Natriuretic Peptide 317.2 H Troponin, BNP 10/14/18 10/14/18 01:15 05:10 Troponin I 1.25 H* 1.76 H* B-Natriuretic Peptide 317.2 H Assessment/Plan EKG: sinus tachycardia, no ischemic changes CTA chest: prominent central arteries suggesting pulm HTN, mild chronic lung dz bibasilar atelectasis, no PE tele: sinus, sinus tachycardia 53F h/o HIV, opiate abuse, DVT, asthma, DM, HLD p/w alt mental status, hypoxia Elevated trop - 1.5 ->1.75 flat trend; CK/CKMB elevated however nl index - EKG no ischemic changes - likely demand ischemia in setting of acute hypoxemic resp failure, rhabdo - third trop pending, if trend flat would stop therapeutic lovenox - continue plavix as this is a chronic medication for her - echo pending - if rules out for MS would recommend stress test when acute issues resolved acute resp failure, alt mental status - CTA chest no PE, infiltrate - may be 2/2 to opiate abuse - improving with narcan - elevated CK - concern for rhabdo - manage per primary hx blood clots, ?PAD - unclear history - reportedly on plavix at home for this - may be history of PAD, which would explain plavix (has not been on AC before) , patient unsure of details - continue plavix, obtain prior records asthma - manage per primary HIV - ID consulted DM - manage per primary
[2018-10-14] MEDS ORDERED: PATIENT'S OWN MEDICATION (NON-FORMULARY) (Darunavir/Cob/Emtri/Tenof Alaf [Symtuza 800-150- PO SCH (10:00)
[2018-10-14] MEDS ORDERED: DARUNAVIR 800 MG/COBICISTAT 150MG TABLET PO SCH (13:15)
--- NOTE | 2018-10-14 13:17 | PN ---
Progress Note (short form) - Note Progress Note: ID CONSULT DICTATED S/P ALTERED MENTAL STATUS HYPOXEMIA ?BRONCHITIS PCN ALLERGY HIV+ ASYMPTOMATIC OBTAIN CD4 CONTINUE ART ZITHROMAX PO
--- NOTE | 2018-10-14 14:10 | EKG ---
Test Reason : Blood Pressure : / mmHG Vent. Rate : 125 BPM Atrial Rate : 125 BPM P-R Int : 142 ms QRS Dur : 088 ms QT Int : 320 ms P-R-T Axes : 062 050 051 degrees QTc Int : 461 ms SINUS TACHYCARDIA POSSIBLE LEFT ATRIAL ENLARGEMENT BORDERLINE ECG Confirmed by MD BENSON, CRISTY ([id number]) on 10/14/2018 2:09:52 PM Referred By: Confirmed By:CRISTY KNOWLES MD
--- NOTE | 2018-10-14 14:25 | CONS ---
INFECTIOUS DISEASE CONSULTATION DATE OF CONSULTATION: DATE OF DICTATION: 10/14/2018 HISTORY OF PRESENT ILLNESS: The patient is a 53-year-old female, history of HIV positive, who was admitted from detox with altered mental status and shortness of breath. The patient was at [facility] when she developed increased lethargy and shortness of breath. She was brought to the emergency room where the patient was noted to be hypoxemic with an O2 saturation of 50% on room air. She was placed on nonrebreather mask. She was given a dose of Narcan and transiently woke up. A CAT scan of the chest was performed and was negative for PE or pneumonia. CAT scan of the head was negative. Her course was complicated by temperature to 100.3 and an elevated white blood cell count 12,000 with a normal differential. Cultures were obtained. She was empirically treated with vancomycin, doxycycline, and Flagyl. At the present time, she is awake. She has no focal complaints. She denies any chest pain. No complaint of shortness of breath. No vomiting or diarrhea. No dysuria. Patient reports cough productive of thick sputum. PAST MEDICAL HISTORY: Positive for HIV infection; she was diagnosed in 2004. She is followed at an [facility] in [place]. She reports that she is undetectable and her T-cell count is "good." She is adherent to anti-retroviral therapy. Past medical history positive for HIV infection, diabetes mellitus, hyperlipidemia, asthma. ALLERGIES: PENICILLIN (hives). MEDICATION: Symtuza. LABORATORY DATA: White count 11.9, hematocrit 42.8, platelet 194. BUN 13, creatinine 0.6. Influenza swab negative. Urinalysis: White cells 3. SOCIAL HISTORY: Positive for polysubstance abuse and tobacco use. PHYSICAL EXAMINATION General: On examination, the patient is awake, and alert, seated in bed. She appears comfortable. Her breathing is nonlabored on nasal cannula O2. Vital Signs: Temperature 98.1, , blood pressure 99/67, pulse 94, regular, respirations 20 per minute. Eyes: Sclerae are anicteric. Throat: Oropharynx negative. Neck: Supple. Heart: Heart sounds S1, S2. Lungs: Clear. Abdomen: Soft and nontender. Extremities: Negative for edema. IMPRESSION: 1. Status post altered mental status. 2. Hypoxemia. 3. Bronchitis. 4. PENICILLIN allergy. 5. Human immunodeficiency virus positive. Asymptomatic. PLAN: Await cultures. Obtain CD4 lymphocyte count. Zithromax p.o. for treatment of bronchitis. Continue anti-retroviral therapy. Thank you for the kind referral. SHOAIB VIVAR M.D. [id number]
[2018-10-14] MEDS ORDERED: PT OWN MED DRAWER 7, Y5N ONE (15:08)
[2018-10-14] MEDS: AZITHROMYCIN 250 MG TABLET PO SCH (15:17)
[2018-10-14 15:30] VITALS: BMI 29.2
[2018-10-14] MEDS: EMTRICITABINE 200MG/TENOFOVIR 300MG PO SCH (17:31)
[2018-10-14] MEDS: ATORVASTATIN CA 40 MG TABLET (FP) PO SCH (21:22)
[2018-10-15] MEDS ORDERED: ACETAMINOPHEN 325 MG TABLET (FP) PO ONE (04:16)
[2018-10-15] MEDS: INSULIN SLIDING SCALE (NOVOLOG) 1 VIAL SQ SCH ×4 (04:44→23:25)
[2018-10-15] MEDS: SODIUM CHLORIDE 1,000 ML IV SCH ×2 (06:10→16:36)
--- NOTE | 2018-10-15 07:19 | PN ---
Physical Exam: SUBJECTIVE: Patient seen and examined. More awake today. Did not receive 10mg methadone dose yesterday for acute detox because of increased somnolence. Feels better, this am, more awake, no chest pain or SOB. Pt still has cough, productive of whitish sputum. OBJECTIVE: Vital Signs Period Temp Pulse Resp BP Sys/Lopez Pulse Ox Last 24 Hr 97.9 F-98.4 F 77-97 12-20 94-128/61-77 96-98 Vital Signs Temp 98.3 F 10/15/18 10:15 Pulse 70 10/15/18 10:15 Resp 16 10/15/18 10:15 BP 107/72 10/15/18 10:15 Pulse Ox 98 10/14/18 20:31 Intake & Output 10/14/18 10/14/18 10/15/18 11:59 23:59 11:59 Intake Total 1440 1050 Balance 1440 1050 Weight 90.718 kg 72.575 kg Intake: IV 1200 1050 Normal Saline - 1,000 ml 1200 1050 @ 150 mls/hr IV ASDIR SMITH Rx#:[id number] Oral 240 Other: Voiding Method Bedside Commode # Unmeasured Voids Void 1 2 Bowel Movement No Height 1.57 m 1.57 m Body Mass Index (BMI) 36.6 29.2 Weight Measurement Method Estimated by Patient Weight Measurement Method Estimated by Staff GENERAL: The patient is awake, alert, and fully oriented, in no acute respiratory distress. HEAD: Normal with no signs of trauma. EYES: PERRL, extraocular movements intact, ENT: Ears normal, nares patent, oropharynx clear without exudates, moist mucous membranes. NECK: supple. LUNGS: Breath sounds equal, few wheezes, no crackles HEART: Regular rate and rhythm, S1, S2 ABDOMEN: Soft, nontender, nondistended, normoactive bowel sounds, EXTREMITIES: 2+ pulses, warm, well-perfused, no edema. NEUROLOGICAL: Cranial nerves II through XII grossly intact. Normal speech, gait not observed. COWs- 0- No evidence of opiate withdrawal CBC, BMP 10/15/18 06:10 10/15/18 06:10 Laboratory Results - last 24 hr 10/14/18 10/14/18 10/14/18 06:00 07:35 11:01 POC Glucometer Hemoglobin A1c % 5.8 Creatine Kinase 1351 H Creatine Kinase Index 0.7 CK-MB (CK-2) 10.7 H Troponin I 1.55 H* Blood Type O POSITIVE Antibody Screen Negative 10/14/18 10/14/18 10/14/18 12:29 12:50 17:06 POC Glucometer 123 105 Hemoglobin A1c % Creatine Kinase Creatine Kinase Index CK-MB (CK-2) Troponin I Blood Type O POSITIVE Antibody Screen 10/14/18 10/15/18 21:21 04:09 POC Glucometer 111 75 Hemoglobin A1c % Creatine Kinase Creatine Kinase Index CK-MB (CK-2) Troponin I Blood Type Antibody Screen Active Medications Generic Name Dose Route Start Last Admin Trade Name Freq PRN Reason Stop Dose Admin Aspirin 81 mg 10/15/18 10:00 Asa - PO DAILY [facility] Atorvastatin Calcium 40 mg 10/14/18 22:00 10/14/18 21:22 Lipitor - PO 40 mg HS SMITH Administration Azithromycin 500 mg 10/14/18 13:30 10/14/18 15:17 Zithromax - PO 500 mg DAILY SMITH Administration Clopidogrel Bisulfate 75 mg 10/15/18 10:00 Plavix - PO DAILY SMITH Emtricitabine/Tenofovir 1 tab 10/14/18 13:30 10/14/18 17:31 Truvada PO 1 tab DAILY SMITH Administration Sodium Chloride 1,000 mls @ 150 mls/hr 10/14/18 06:33 10/15/18 06:10 Normal Saline - IV Not Given ASDIR [facility] Insulin Aspart 1 vial 10/14/18 05:30 10/15/18 04:44 Novolog Vial Sliding Scale - SQ Not Given Q6H [facility] Protocol ASSESSMENT/PLAN: Pt is a 53 yo F with PMHx of HIV (on Symtuza), polysubstance abuse (oxycodone, heroine -snorted), vascular disease (on Plavix), asthma, diabetes mellitus, hyperlipidemia, major depressive disorder, post traumatic stress disorder, presents from [facility] after being found poorly responsive and desaturating to low 50s. Acute hypoxemic, hypercapnic respiratory failure -Likely secondary to resp depression in setting of opiate use, with underlying asthma/COPD -Resolving with pt more alert -CXR-Linear scarring/atelectasis of LLL, sharp angles -CTA -No PE, Prominent central pulm arteries suggestive of PHTN, mild chronic lung dx, mild thyromegaly -VBG shows retaining CO2. In addition to patient's opiate abuse history, concern for hypoventilation as cause of respiratory failure. -Follow ABG -As patient was found minimally responsive, concern for sepsis secondary to aspiration. Patient febrile to Tmax 102.2F, with WBC 12. Patient received Vancomycin and Doxycycline in ED. received Flagyl 50mg IV one time dose. -Pt on azithromycin -Follow blood , -urine cultures- contaminant -Influenza A/ B negative. - RSV PCR- pending -ID consult (Dr. Yeung seeing) Acute metabolic encephalopathy likely due to medication overdose -CT head negative for intracranial hemorrhage/no acute pathol. -Patient received Narcan 0.4mg IV push x2 doses -urine toxicology- +ve for opiates and methadone -Follow ammonia level -CPK 595. CK-1351, CKI-0.7, CKMB-10.7 - Fluids dcd -Fall precautions -Aspiration precautions; elevate head of bed 30-45 degrees - Avoid all sedatives including methadone and trazadone Troponinemia -Peaked-1.25>1.76>1.55 -Likely in setting of demand ischemia from hypoxia -EKG shows sinus tachycardia at 125BPM. Questionable, incomplete RBBB. -Lovenox 100mg subq Q12 hours discontinued -Loading dose Plavix 300mg PO given. Continue with home Plavix 75mg PO daily ( unclear indication, Pt reports going to [facility]-maybe for PVD not clots, donal verify during the week) -Loading dose Aspirin 325mg PO. Will continue with Aspirin 81mg PO daily. (Pt reported Hives with ASA when awake, but has not reacted will follow Cards for recommendations concerning AP therapy) -Atorvastatin 40mg PO HS -Pending Cardiac ECHO -Cardiology consult (Dr. Beyer) Polysubstance abuse -Presented with COWs score of 9 - 10, now COWS -0 (Off methadone for acute detox, 10mg yesterday and 5mg today held), Pt not on long-term detox with methadone -Per Resident, Discussed with [facility] who note patient was admitted 10/11, and started on Methadone taper at 30mg. -Cont to hold Methadone to minimize sedation. -Monitor for signs of increasing opiate withdrawal-COWS -Fall precautions, aspiration precautions. -Dr. Hernandez consulted. Asthma -Will need medicine reconciliation to ensure patient's home treatment -DuoNebs Q4 hours PRN for shortness of breath -Maintain oxygen saturation greater than 90% History of HIV -Pending CD4 count -Symtuza unavilable-Pt on Truvada while here -ID consult (Dr. Porras) appreciated History of Likely PVD -Will need to obtain further history -Lovenox stopped as unclear hx of dvt/PE. Patient receiving Aspirin, and Plavix. Diabetes mellitus -LyP8c-8.8 -Insulin sliding scale ACHS -BGM ACHS FEN -Stop IV normal saline at 150mL/ hour -Hyponatremia- resolved -Resume diet Prophylaxis -Will add sq lovenox, therapeutic dose stopped Disposition -Telemetry - pending ECHO and possible stress test Visit type - Emergency Visit Emergency Visit: Yes ED Registration Date: 10/14/18 Care time: The patient presented to the Emergency Department on the above date and was hospitalized for further evaluation of their emergent condition. - New Patient This patient is new to me today: No - Critical Care Critical Care patient: No - Discharge Referral Referred to [facility] No
[2018-10-15 07:32] LABS: BASO % 0.7 % (0-2.0); EOS % 2.6 % (0-4.5); HEMATOCRIT 41.6 % (32.4-45.2); HEMOGLOBIN 13.8 GM/dL (10.7-15.3); LYMPH % 26.6 % (8-40); MCH 32.5 pg (25.7-33.7); MCHC 33.2 g/dl (32.0-36.0); MEAN CELL VOLUME 97.9 fl (80-96); MEAN PLT VOLUME 8.5 fl (7.5-11.1); MONO % 15.1 % (3.8-10.2); PLATELET COUNT 178 K/MM3 (134-434); RBC 4.25 M/mm3 (3.60-5.2); RDW 13.4 % (11.6-15.6); WHITE BLOOD COUNT 6.5 K/mm3 (4.0-10.0)
[2018-10-15 07:59] LABS: ALBUMIN 2.9 g/dl (3.4-5.0); ALK PHOS 69 U/L (45-117); ANION GAP 4 MMOL/L (8-16); BILIRUBIN,TOTAL 0.5 mg/dL (0.2-1); BLOOD UREA NITROGEN 11 mg/dL (7-18); CALCIUM 8.2 mg/dL (8.5-10.1); CHLORIDE 106 mmol/L (98-107); CO2 31 mmol/L (21-32); CREATININE 0.4 mg/dL (0.55-1.3); GLUCOSE,RANDOM 75 mg/dL (74-106); POTASSIUM 4.1 mmol/L (3.5-5.1); SGOT/AST 59 U/L (15-37); SGPT/ALT 41 U/L (13-61); SODIUM 141 mmol/L (136-145); TOT PROT 6.1 g/dl (6.4-8.2)
[2018-10-15] MEDS ORDERED: CLOPIDOGREL BISULFATE 75 MG TABLET (FP) PO SCH (10:00)
[2018-10-15] MEDS ORDERED: PT OWN MED DRAWER 7, Y5N ONE ×3 (10:05→19:44)
[2018-10-15] MEDS: EMTRICITABINE 200MG/TENOFOVIR 300MG PO SCH (10:11)
[2018-10-15] MEDS: CLOPIDOGREL BISULFATE 75 MG TABLET (FP) PO SCH (10:11)
[2018-10-15] MEDS: ASPIRIN 81 MG CHEWABLE TABLETS PO SCH (10:11)
[2018-10-15] MEDS: AZITHROMYCIN 250 MG TABLET PO SCH (10:11)
[2018-10-15] MEDS: DARUNAVIR 800 MG/COBICISTAT 150MG TABLET PO SCH (10:11)
--- NOTE | 2018-10-15 10:32 | PN ---
Progress Note (short form) - Note Progress Note: s: no chest pain, palps, dizziness, lightheadedness. feels better. Current Medications Aspirin (Asa -) 81 mg PO DAILY [facility] Last Admin: 10/15/18 10:11 Dose: 81 mg Atorvastatin Calcium (Lipitor -) 40 mg PO HS [facility] Last Admin: 10/14/18 21:22 Dose: 40 mg Azithromycin (Zithromax -) 500 mg PO DAILY [facility] Last Admin: 10/15/18 10:11 Dose: 500 mg Clopidogrel Bisulfate (Plavix -) 75 mg PO DAILY [facility] Last Admin: 10/15/18 10:11 Dose: 75 mg Emtricitabine/Tenofovir (Truvada) 1 tab PO DAILY [facility] Last Admin: 10/15/18 10:11 Dose: 1 tab Sodium Chloride (Normal Saline -) 1,000 mls @ 150 mls/hr IV ASDIR [facility] Last Admin: 10/15/18 06:10 Dose: Not Given Insulin Aspart (Novolog Vial Sliding Scale -) 1 vial SQ Q6H [facility]; Protocol Last Admin: 10/15/18 04:44 Dose: Not Given Vital Signs Period Temp Pulse Resp BP Sys/Lopez Pulse Ox Last 24 Hr 97.9 F-98.4 F 70-97 12-20 94-128/61-77 96-98 Constitutional: Yes: No Distress, Calm Eyes: Yes: Conjunctiva Clear, EOM Intact HENT: Yes: Atraumatic, Normocephalic Neck: Yes: Supple, Trachea Midline Respiratory: Yes: Regular, Wheezes (diffuse expiratory wheezes) Gastrointestinal: Yes: Normal Bowel Sounds, Soft Cardiovascular: Yes: Regular Rate and Rhythm JVD: No Carotid Bruit: No PMI: Non-Displaced Heart Sounds: Yes: S1, S2 Murmur: No: Systolic Murmur Musculoskeletal: No: Back Pain Extremities: No: Cold Edema: No Peripheral Pulses WNL: Yes Peripheral Pulses: 2+ Left Doralis Pedis, 2+ Right Dorsalis Pedis Integumentary: No: Jaundice Neurological: Yes: Alert, Oriented Psychiatric: No: Agitated Assessment/Plan EKG: sinus tachycardia, no ischemic changes CTA chest: prominent central arteries suggesting pulm HTN, mild chronic lung dz bibasilar atelectasis, no PE tele: sinus 53F h/o HIV, opiate abuse, DVT, asthma, DM, HLD p/w alt mental status, hypoxia Elevated trop - 1.5 ->1.75->1.5 flat trend; CK/CKMB elevated however nl index - EKG no ischemic changes - likely demand ischemia in setting of acute hypoxemic resp failure, rhabdo - continue plavix as this is a chronic medication for her - echo pending - recommend stress test when acute issues resolved acute resp failure, alt mental status - CTA chest no PE, infiltrate - may be 2/2 to opiate abuse - improving with narcan - elevated CK - concern for rhabdo - manage per primary hx blood clots, ?PAD - unclear history - reportedly on plavix at home for this - may be history of PAD, which would explain plavix (has not been on AC before) , patient unsure of details - continue plavix, obtain prior records asthma - manage per primary HIV - ID consulted DM - manage per primary
--- NOTE | 2018-10-15 10:54 | PN ---
Teaching Attending Note Name of Resident: Gisela Vidales ATTENDING PHYSICIAN STATEMENT I saw and evaluated the patient. I reviewed the resident's note and discussed the case with the resident. I agree with the resident's findings and plan as documented. SUBJECTIVE:c/o productive cough of white sputum and just generalized fatigue. recalls the previous few days. states shes been abusing percocets and snorting heroin and decided to go to [facility] for detox. was not feeling well there and reported to staff adn then does not recall the day of admission tuesday specifics. states she is compliant with her medications. says she was placed on plavix for a "blood clot" after she went for testing, did not have pain or swelling of extremiteis. states it ws never mentioned she needed anticoagulation for a period of time, did not recognize names of these medications and said she was never on them and did not tolerate. states they wanted her on asa but she developed rash and was switched to plavix. has not had cardiac testing in the past. OBJECTIVE: Last Vital Signs Temp Pulse Resp BP Pulse Ox 98.3 F 70 16 107/72 98 10/15/18 10:15 10/15/18 10:15 10/15/18 10:15 10/15/18 10:15 10/14/18 20:31 General lethargic CV S1 S2 RRR no murmur/rub/gallop Lungs CTA B/L no wheezing/rales/rhonchi ASSESSMENT AND PLAN: 53yo F with PMH HTN, DM, HIV on HARRT and continuous opiate dependence was at [facility] for detox and was found to be hypoxic with altered sensorium and here found to have elevated troponins 1. Acute hypoxic respiratory failure-currently 98% on RA. CT negative for acute pathology. will treat for acute bronchitis. titrate down oxygen requirements as tolerated. 2. Acute toxic metabolic encephalopathy-appears to be at baseline. slightly lethargic due to present illness but imrpoving. will cont to hold sedating medications. 3. Tropinemia- Trop flat trend 1.25-1.75- 1.5. demand due to hypoxia and tachycardia. off lovenox. will get ischemia eval once medically improved. no reaction to asa here. will cont with plavix. cardio on board. 4. Sepsis due to acute bronchitis-afebrile, leukocytosis and tachycardia resolved. CT offically negative for any infiltrate. will treat for bronchitis. viral panel sent. on azithro day 2. ID on board 5. Opiate withdrawal- COWS 0. will cont to hold methadone (today would have been last day). not interested in inpatient rehab and will attend outpatient clinics. counselled on risk assoc iwth continued use. currently low COWS. would hold on methadone at the present. was scheduled for methadone 10mg today and 5mg tomorrow when detox would be complete. will give 10mg once mental status improves. correction to previous notes as pt does NOT take methadone at home as this is only part of detox program. will assess if interested in rehab when mental status improved. detox consulted 6. HIV- on HARRT. does not know CD4 count. levels sent. cont therapy. ID on board 7. DM- hold oral agents. iss and BGM. A1c pending 8. HTN- currently hypotensive. would hold antihypertensives. start as needed 9. PAD/PVD- chart states DVT however i do not think she has hx of this and more so of PAD. will need to call PMD to confirm this 10. DVT ppx- lovenox
[2018-10-15] MEDS: ACETAMINOPHEN 325 MG TABLET (FP) PO PRN (17:46)
[2018-10-15] MEDS: ATORVASTATIN CA 40 MG TABLET (FP) PO SCH (22:04)
[2018-10-16 06:15] LABS: BASO % 0.9 % (0-2.0); EOS % 2.4 % (0-4.5); HEMATOCRIT 39.5 % (32.4-45.2); HEMOGLOBIN 13.2 GM/dL (10.7-15.3); LYMPH % 29.9 % (8-40); MCH 32.5 pg (25.7-33.7); MCHC 33.3 g/dl (32.0-36.0); MEAN CELL VOLUME 97.5 fl (80-96); MEAN PLT VOLUME 8.5 fl (7.5-11.1); MONO % 11.8 % (3.8-10.2); PLATELET COUNT 180 K/MM3 (134-434); RBC 4.05 M/mm3 (3.60-5.2); RDW 12.9 % (11.6-15.6); WHITE BLOOD COUNT 7.6 K/mm3 (4.0-10.0)
[2018-10-16] MEDS: SODIUM CHLORIDE 1,000 ML IV SCH (06:18)
[2018-10-16] MEDS: INSULIN SLIDING SCALE (NOVOLOG) 1 VIAL SQ SCH ×2 (06:18→11:27)
[2018-10-16 06:50] LABS: ALBUMIN 2.7 g/dl (3.4-5.0); ALK PHOS 61 U/L (45-117); ANION GAP 4 MMOL/L (8-16); BILIRUBIN,TOTAL 0.5 mg/dL (0.2-1); BLOOD UREA NITROGEN 8 mg/dL (7-18); CHLORIDE 106 mmol/L (98-107); CO2 32 mmol/L (21-32); CREATININE 0.4 mg/dL (0.55-1.3); GLUCOSE,RANDOM 77 mg/dL (74-106); MAGNESIUM 1.7 mg/dL (1.8-2.4); PHOSPHOROUS 3.4 mg/dL (2.5-4.9); POTASSIUM 3.8 mmol/L (3.5-5.1); SGOT/AST 49 U/L (15-37); SGPT/ALT 37 U/L (13-61); SODIUM 142 mmol/L (136-145); TOT PROT 5.6 g/dl (6.4-8.2)
[2018-10-16] MEDS ORDERED: PT OWN MED DRAWER 7, Y5N ONE (10:19)
[2018-10-16] MEDS: CLOPIDOGREL BISULFATE 75 MG TABLET (FP) PO SCH (10:26)
[2018-10-16] MEDS: ACETAMINOPHEN 325 MG TABLET (FP) PO PRN ×2 (10:27→22:26)
[2018-10-16] MEDS: ASPIRIN 81 MG CHEWABLE TABLETS PO SCH (10:29)
[2018-10-16] MEDS: AZITHROMYCIN 250 MG TABLET PO SCH (10:29)
[2018-10-16] MEDS: EMTRICITABINE 200MG/TENOFOVIR 300MG PO SCH (10:31)
[2018-10-16] MEDS: DARUNAVIR 800 MG/COBICISTAT 150MG TABLET PO SCH (10:31)
--- NOTE | 2018-10-16 10:43 | PN ---
Progress Note, Physician Chief Complaint: seen and examined Denies CP or SOB TELE: NSR - Current Medication List Current Medications: Active Medications Acetaminophen (Tylenol -) 650 mg PO Q6H PRN PRN Reason: PAIN LEVEL 6-10 Last Admin: 10/16/18 10:27 Dose: 650 mg Aspirin (Asa -) 81 mg PO DAILY [facility] Last Admin: 10/16/18 10:29 Dose: 81 mg Atorvastatin Calcium (Lipitor -) 40 mg PO HS [facility] Last Admin: 10/15/18 22:04 Dose: 40 mg Azithromycin (Zithromax -) 500 mg PO DAILY [facility] Last Admin: 10/16/18 10:29 Dose: 500 mg Clopidogrel Bisulfate (Plavix -) 75 mg PO DAILY [facility] Last Admin: 10/16/18 10:26 Dose: 75 mg Emtricitabine/Tenofovir (Truvada) 1 tab PO DAILY [facility] Last Admin: 10/16/18 10:31 Dose: 1 tab Sodium Chloride (Normal Saline -) 1,000 mls @ 150 mls/hr IV ASDIR [facility] Last Admin: 10/16/18 06:18 Dose: Not Given Insulin Aspart (Novolog Vial Sliding Scale -) 1 vial SQ [facility]; Protocol Last Admin: 10/16/18 06:18 Dose: Not Given - Objective Vital Signs: Vital Signs Temperature 97.9 F 10/16/18 10:24 Pulse Rate 69 10/16/18 10:24 Respiratory Rate 18 10/16/18 10:24 Blood Pressure 148/80 10/16/18 10:24 O2 Sat by Pulse Oximetry (%) 97 10/15/18 21:00 Constitutional: Yes: No Distress, Calm Cardiovascular: Yes: Regular Rate and Rhythm Respiratory: Yes: CTA Bilaterally (no rales or wheezing) Gastrointestinal: Yes: Soft (NT) Edema: No Neurological: Yes: Alert, Oriented ...Motor Strength: WNL Labs: CBC, BMP 10/16/18 05:30 10/16/18 05:30 INR, PTT INR 1.06 (0.83-1.09) 10/14/18 01:15 Laboratory Tests 10/16/18 10/16/18 05:30 05:30 WBC 7.6 Hgb 13.2 Plt Count 180 Sodium 142 Potassium 3.8 BUN 8 Creatinine 0.4 L - ....Imaging EKG: Image Reviewed Assessment/Plan IMP/PLAN: 53F h/o HIV, opiate abuse, DVT, asthma, DM, HLD p/w alt mental status, hypoxia 1. Elevated trop: - 1.5 ->1.75->1.5 flat trend; CK/CKMB elevated however nl index - EKG no ischemic changes - likely demand ischemia in setting of acute hypoxemic resp failure, rhabdo - continue plavix as this is a chronic medication for her - echo pending - recommend stress test when acute issues resolved, prior to discharge. 2. Acute resp failure, alt mental status: - CTA chest no PE, infiltrate - may be 2/2 to opiate abuse - improved with narcan - elevated CK - concern for rhabdo - manage per primary 3. H/O blood clots, ?PAD: - unclear history - reportedly on plavix at home for this - may be history of PAD, which would explain plavix (has not been on AC before) , patient unsure of details - continue plavix, obtain prior records 4. Asthma, chronic: - manage per primary 5. HIV: - ID consulted 6. DM: - manage per primary
--- NOTE | 2018-10-16 15:40 | PN ---
Teaching Attending Note Name of Resident: Paco Swartz ATTENDING PHYSICIAN STATEMENT I saw and evaluated the patient. I reviewed the resident's note and discussed the case with the resident. I agree with the resident's findings and plan as documented. SUBJECTIVE: Patient has no complaints. OBJECTIVE: Vital Signs Period Temp Pulse Resp BP Sys/Lopez Pulse Ox Last 24 Hr 97.3 F-98.1 F 65-70 18-18 115-148/64-80 97-97 HEART: S1S2, RRR LUNGS: Clear ABDOMEN: Soft, non-tender, non-distended, normal BS EXTREMITIES: No edema Laboratory Results - last 24 hr 10/14/18 10/15/18 10/15/18 05:10 16:35 22:03 WBC 12.0 H RBC Hgb Hct MCV MCH MCHC RDW Plt Count MPV Absolute Neuts (auto) Absolute Lymphs (auto) 2.3 Neutrophils % Lymphocytes % Monocytes % Eosinophils % Basophils % Nucleated RBC % Lymphocytes 19 Nucleated RBCs TNP Sodium Potassium Chloride Carbon Dioxide Anion Gap BUN Creatinine Creat Clearance w eGFR POC Glucometer 120 89 Random Glucose Calcium Phosphorus Magnesium Total Bilirubin AST ALT Alkaline Phosphatase Total Protein Albumin Absolute CD3 Count 1822 % CD3+ Lymphocytes 79.2 Absolute CD4 [place] 1088 % CD4+ Lymphocyte 47.3 CD4/CD8 Ratio 1.15 % CD8+ Lymphocyte 41.0 H Absolute CD8 Count 943 H 10/16/18 10/16/18 10/16/18 05:30 05:30 06:07 WBC 7.6 RBC 4.05 Hgb 13.2 Hct 39.5 MCV 97.5 H MCH 32.5 MCHC 33.3 RDW 12.9 Plt Count 180 MPV 8.5 Absolute Neuts (auto) 4.2 Absolute Lymphs (auto) Neutrophils % 55.0 Lymphocytes % 29.9 Monocytes % 11.8 H Eosinophils % 2.4 Basophils % 0.9 Nucleated RBC % 0 Lymphocytes Nucleated RBCs Sodium 142 Potassium 3.8 Chloride 106 Carbon Dioxide 32 Anion Gap 4 L BUN 8 Creatinine 0.4 L Creat Clearance w eGFR 166.97 POC Glucometer 74 Random Glucose 77 Calcium 8.0 L Phosphorus 3.4 Magnesium 1.7 L Total Bilirubin 0.5 AST 49 H ALT 37 Alkaline Phosphatase 61 Total Protein 5.6 L Albumin 2.7 L Absolute CD3 Count % CD3+ Lymphocytes Absolute CD4 [place] % CD4+ Lymphocyte CD4/CD8 Ratio % CD8+ Lymphocyte Absolute CD8 Count 04/22/19 11:23 WBC RBC Hgb Hct MCV MCH MCHC RDW Plt Count MPV Absolute Neuts (auto) Absolute Lymphs (auto) Neutrophils % Lymphocytes % Monocytes % Eosinophils % Basophils % Nucleated RBC % Lymphocytes Nucleated RBCs Sodium Potassium Chloride Carbon Dioxide Anion Gap BUN Creatinine Creat Clearance w eGFR POC Glucometer 100 Random Glucose Calcium Phosphorus Magnesium Total Bilirubin AST ALT Alkaline Phosphatase Total Protein Albumin Absolute CD3 Count % CD3+ Lymphocytes Absolute CD4 [place] % CD4+ Lymphocyte CD4/CD8 Ratio % CD8+ Lymphocyte Absolute CD8 Count Current Medications Generic Name Dose Route Start Last Admin Trade Name Freq PRN Reason Stop Dose Admin Acetaminophen 650 mg 10/15/18 17:33 10/16/18 10:27 Tylenol - PO 650 mg Q6H PRN Administration PAIN LEVEL 6-10 Aspirin 81 mg 10/15/18 10:00 10/16/18 10:29 Asa - PO 81 mg DAILY SMITH Administration Atorvastatin Calcium 40 mg 10/14/18 22:00 10/15/18 22:04 Lipitor - PO 40 mg HS SMITH Administration Azithromycin 500 mg 10/14/18 13:30 10/16/18 10:29 Zithromax - PO 500 mg DAILY [facility] Administration Clopidogrel Bisulfate 75 mg 10/15/18 10:00 10/16/18 10:26 Plavix - PO 75 mg DAILY SMITH Administration Emtricitabine/Tenofovir 1 tab 10/14/18 13:30 10/16/18 10:31 Truvada PO 1 tab DAILY SMITH Administration Sodium Chloride 1,000 mls @ 150 mls/hr 10/14/18 06:33 10/16/18 06:18 Normal Saline - IV Not Given ASDIR SMITH Insulin Aspart 1 vial 10/15/18 16:30 10/16/18 11:27 Novolog Vial Sliding Scale - SQ Not Given ACHS [facility] Protocol ASSESSMENT AND PLAN: This is a 53 year old woman with a history of HTN, type 2 DM, HIV, opiate dependence who was sent to the ED from [facility] for altered mental status and hypoxia. 1. Acute hypoxic respiratory failure and sepsis secondary to acute bronchitis - Resolved - Continue Zithromax 2. Acute toxic metabolic encephalopathy - Resolved 3. Probable demand ischemia - Continue aspirin, Plavix - Echo, stress test ordered 4. Opiate withdrawal - Completed methadone detox 5. HIV - Continue Truvada, Prezcobix 6. Type 2 DM - HbA1c 5.8 - Metformin held - Continue Novolog sliding scale 7. HTN - On no medication Unclear why patient was taking Plavix prior to admission. She states it is because she has had clots in her legs. Will try to clarify with PCP.
--- NOTE | 2018-10-16 15:43 | PN ---
Physical Exam: SUBJECTIVE: Patient seen and examined at bedside this morning. Patient admits that she is slightly diaphoretic, however denies subjective fevers, shortness of breath, chest pain, palpitations, abdominal pain, nausea, vomiting. Patient denies suicidal, or homicidal ideation. OBJECTIVE: Vital Signs Period Temp Pulse Resp BP Sys/Lopez Pulse Ox Last 24 Hr 97.3 F-98.1 F 65-70 18-18 115-148/64-80 97-97 GENERAL: Patient is awake, alert, in no acute distress. HEAD: Normocephalic, atraumatic. EYES: PERRLA. Extraocular movements intact without nystagmus. Conjunctiva non- injected bilaterally. No jaundice. EARS, NOSE, THROAT: Oropharynx clear without exudates. Moist mucous membranes. NECK: Supple without lymphadenopathy, or JVD. LUNGS: Breath sounds equal, clear to auscultation bilaterally. No wheezes, and no crackles. No accessory muscle use. HEART: Regular rate and rhythm, normal S1 and S2 without murmur, rub or gallop. ABDOMEN: Obese. Soft, not distended, nontender to light and deep palpation x4 quadrants. No guarding, no rebound tenderness. Normoactive bowel sounds x4 quadrants. MUSCULOSKELETAL: Normal range of motion at all joints. No bony deformities or tenderness. UPPER EXTREMITIES: 2+ radial pulses bilaterally, warm, well-perfused. No cyanosis. No clubbing. LOWER EXTREMITIES: 2+ dorsalis pedis pulses bilaterally, warm, well-perfused. No calf tenderness, no peripheral edema bilaterally NEUROLOGICAL: Cranial nerves II-XII intact. Patient freely moves all 4 extremities equally. No gross focal deficits. PSYCHIATRIC: Appropriate mood and affect upon my encounter. SKIN: Warm, dry. No rashes or lesions noted. Laboratory Results - last 24 hr 10/14/18 10/15/18 10/15/18 05:10 16:35 22:03 WBC 12.0 H RBC Hgb Hct MCV MCH MCHC RDW Plt Count MPV Absolute Neuts (auto) Absolute Lymphs (auto) 2.3 Neutrophils % Lymphocytes % Monocytes % Eosinophils % Basophils % Nucleated RBC % Lymphocytes 19 Nucleated RBCs TNP Sodium Potassium Chloride Carbon Dioxide Anion Gap BUN Creatinine Creat Clearance w eGFR POC Glucometer 120 89 Random Glucose Calcium Phosphorus Magnesium Total Bilirubin AST ALT Alkaline Phosphatase Total Protein Albumin Absolute CD3 Count 1822 % CD3+ Lymphocytes 79.2 Absolute CD4 [place] 1088 % CD4+ Lymphocyte 47.3 CD4/CD8 Ratio 1.15 % CD8+ Lymphocyte 41.0 H Absolute CD8 Count 943 H 10/16/18 10/16/18 10/16/18 05:30 05:30 06:07 WBC 7.6 RBC 4.05 Hgb 13.2 Hct 39.5 MCV 97.5 H MCH 32.5 MCHC 33.3 RDW 12.9 Plt Count 180 MPV 8.5 Absolute Neuts (auto) 4.2 Absolute Lymphs (auto) Neutrophils % 55.0 Lymphocytes % 29.9 Monocytes % 11.8 H Eosinophils % 2.4 Basophils % 0.9 Nucleated RBC % 0 Lymphocytes Nucleated RBCs Sodium 142 Potassium 3.8 Chloride 106 Carbon Dioxide 32 Anion Gap 4 L BUN 8 Creatinine 0.4 L Creat Clearance w eGFR 166.97 POC Glucometer 74 Random Glucose 77 Calcium 8.0 L Phosphorus 3.4 Magnesium 1.7 L Total Bilirubin 0.5 AST 49 H ALT 37 Alkaline Phosphatase 61 Total Protein 5.6 L Albumin 2.7 L Absolute CD3 Count % CD3+ Lymphocytes Absolute CD4 [place] % CD4+ Lymphocyte CD4/CD8 Ratio % CD8+ Lymphocyte Absolute CD8 Count 10/16/18 11:23 WBC RBC Hgb Hct MCV MCH MCHC RDW Plt Count MPV Absolute Neuts (auto) Absolute Lymphs (auto) Neutrophils % Lymphocytes % Monocytes % Eosinophils % Basophils % Nucleated RBC % Lymphocytes Nucleated RBCs Sodium Potassium Chloride Carbon Dioxide Anion Gap BUN Creatinine Creat Clearance w eGFR POC Glucometer 100 Random Glucose Calcium Phosphorus Magnesium Total Bilirubin AST ALT Alkaline Phosphatase Total Protein Albumin Absolute CD3 Count % CD3+ Lymphocytes Absolute CD4 [place] % CD4+ Lymphocyte CD4/CD8 Ratio % CD8+ Lymphocyte Absolute CD8 Count Active Medications Generic Name Dose Route Start Last Admin Trade Name Freq PRN Reason Stop Dose Admin Acetaminophen 650 mg 10/15/18 17:33 10/16/18 10:27 Tylenol - PO 650 mg Q6H PRN Administration PAIN LEVEL 6-10 Aspirin 81 mg 10/15/18 10:00 10/16/18 10:29 Asa - PO 81 mg DAILY SMITH Administration Atorvastatin Calcium 40 mg 10/14/18 22:00 10/15/18 22:04 Lipitor - PO 40 mg HS SMITH Administration Azithromycin 500 mg 10/14/18 13:30 10/16/18 10:29 Zithromax - PO 500 mg DAILY SMITH Administration Clopidogrel Bisulfate 75 mg 10/15/18 10:00 10/16/18 10:26 Plavix - PO 75 mg DAILY SMITH Administration Emtricitabine/Tenofovir 1 tab 10/14/18 13:30 10/16/18 10:31 Truvada PO 1 tab DAILY SMITH Administration Sodium Chloride 1,000 mls @ 150 mls/hr 10/14/18 06:33 10/16/18 06:18 Normal Saline - IV Not Given ASDIR [facility] Insulin Aspart 1 vial 10/15/18 16:30 10/16/18 11:27 Novolog Vial Sliding Scale - SQ Not Given ACHS [facility] Protocol ASSESSMENT/PLAN: Patient is a 53 year old female with history of HIV (on Symtuza), polysubstane abuse (oxycodone, heroine -snorted), DVT (on Plavix), asthma, diabetes mellitus , hyperlipidemia, major depressive disorder, post traumatic stress disorder, presents from [facility] after being found poorly responsive and desaturating to low 50s. Acute hypoxemic, hypercapnic respiratory failure -Resolved. Likely secondary to acute bronchitis. -Influenza A/ B negative. -Chest radiograph upon admission showed no acute infiltrates. -CTA negative for pulmonary embolism. -Azithromycin 500mg PO daily for prophylaxis (day #3) Acute metabolic encephalopathy -Resolved. Likely secondary to Methadone overdose. -Patient received Narcan 0.4mg IV push x2 doses in ED -CT head negative for intracranial hemorrhage. -Fall precautions -Aspiration precautions; elevate head of bed 30-45 degrees Troponinemia -EKG shows sinus tachycardia at 125BPM. Questionable, incomplete RBBB. -Troponin peaked at 1.76 -Therapeutic dose Lovenox discontinued. -Continue with home Plavix 75mg PO daily -Continue with Aspirin 81mg PO daily. -Begin Atorvastatin 40mg PO HS -Follow Cardiac ECHO -Cardiac stress test tomorrow. -Cardiology consult (Dr. Beyer) Polysubstance abuse -Currently COWs score 0 -1. Not in acute withdrawal. -Monitor for signs of increasing opiate withdrawal -Fall precautions, aspiration precautions. -Dr. Hernandez consulted. Asthma -Currently not in exacerbation. -DuoNebs Q4 hours PRN for shortness of breath -Maintain oxygen saturation greater than 90% History of HIV -CD4 count 1088 -Travuda, Prezcobix -ID consult (Dr. Yeung) appreciated History of DVT -Likely history of PVD. Will need to obtain further history regarding which leg (s) affected, and when the clots occurred. Diabetes mellitus -HbA1c 5.8 -Insulin sliding scale discontinued. FEN -No IV fluids indicated. Encourage judicious oral hydration. -Follow CMP -NPO after midnight for stress test. Prophylaxis -Lovenox 40mg subq daily Disposition -Admit to Telemetry floor. Visit type - Emergency Visit Emergency Visit: Yes ED Registration Date: 10/14/18 Care time: The patient presented to the Emergency Department on the above date and was hospitalized for further evaluation of their emergent condition. - New Patient This patient is new to me today: No - Critical Care Critical Care patient: No - Discharge Referral Referred to [facility] Med P.C.: No
[2018-10-16] MEDS: ENOXAPARIN NA (PORCINE) 40 MG/0.4 ML DISP.SYRIN SQ SCH (16:05)
--- NOTE | 2018-10-16 16:56 | ECHO ---
Name: MERCED MARTINS Exam:Adult Echocardiogram Study Date: 10/16/2018 02:28 PM Age: 53 yrs Reason For Study: PT FOUND UNRESPONSIVE Height: 62 in Weight: 200 lb BSA: 1.9 m2 MMode/2D Measurements & Calculations IVSd: 0.92 cm Ao root diam: 3.1 cm LVIDd: 4.6 cm LA dimension: 3.1 cm LVIDs: 3.0 cm LVPWd: 0.85 cm EDV(Teich): 97.0 ml LVOT diam: 2.2 cm ESV(Teich): 33.7 ml Doppler Measurements & Calculations MV E max french: 61.7 cm/sec Ao V2 max: 110.9 cm/sec MV A max french: 58.7 cm/sec Ao max P.9 mmHg MV E/A: 1.1 Ao V2 mean: 86.6 cm/sec MV dec time: 0.16 sec Ao mean P.1 mmHg Ao V2 VTI: 23.2 cm PAUL(I,D): 3.0 cm2 PAUL(V,D): 3.2 cm2 LV V1 max P.7 mmHg SV(LVOT): 69.5 ml LV V1 mean P.7 mmHg LV V1 max: 96.7 cm/sec LV V1 mean: 57.1 cm/sec LV V1 VTI: 18.7 cm TR max french: 219.9 cm/sec Med Peak E' French: 7.9 cm/sec TR max P.3 mmHg Med E/e': 7.8 Lat Peak E' French: 8.6 cm/sec Lat E/e': 7.2 Procedure The study was technically limited with all images being suboptimal in quality. Left Ventricle The left ventricular size, thickness and function are normal. Ejection Fraction = 60-65%. Left Ventri cular Filling pattern is normal for age. Right Ventricle The right ventricle is not well visualized. Atria The left atrial size is normal. Right atrium not well visualized. A dilated inferior vena cava sugges ts increased right atrial pressure. Mitral Valve The mitral valve is not well visualized. Tricuspid Valve The tricuspid valve is not well visualized. There is trace tricuspid regurgitation. There was insuffi cient TR detected to calculate RV systolic pressure. Aortic Valve No aortic regurgitation is present. Pulmonic Valve The pulmonic valve is not well visualized. There is no pulmonic valvular regurgitation. Great Vessels The aortic root is normal size. Pericardium/Pleura There is no pericardial effusion. Interpretation Summary There is no comparison study available. The left ventricular size, thickness and function are normal There is trace tricuspid regurgitation. Ejection Fraction = 60-65%. Naveen Elkins MD 10/16/2018 04:56 PM
[2018-10-16] MEDS: ATORVASTATIN CA 40 MG TABLET (FP) PO SCH (21:35)
[2018-10-17 05:38] LABS: HEMATOCRIT 43.2 % (32.4-45.2); HEMOGLOBIN 14.5 GM/dL (10.7-15.3); MCH 32.2 pg (25.7-33.7); MCHC 33.7 g/dl (32.0-36.0); MEAN CELL VOLUME 95.7 fl (80-96); MEAN PLT VOLUME 8.5 fl (7.5-11.1); PLATELET COUNT 220 K/MM3 (134-434); RBC 4.51 M/mm3 (3.60-5.2); RDW 12.7 % (11.6-15.6); WHITE BLOOD COUNT 8.4 K/mm3 (4.0-10.0)
[2018-10-17 06:06] LABS: ANION GAP 8 MMOL/L (8-16); BLOOD UREA NITROGEN 8 mg/dL (7-18); CALCIUM 8.6 mg/dL (8.5-10.1); CHLORIDE 104 mmol/L (98-107); CO2 30 mmol/L (21-32); CREATININE 0.5 mg/dL (0.55-1.3); GLUCOSE,RANDOM 79 mg/dL (74-106); POTASSIUM 3.4 mmol/L (3.5-5.1); SODIUM 142 mmol/L (136-145)
[2018-10-17] MEDS ORDERED: POTASSIUM CHLORIDE TABS 20 MEQ TABLET.ER (FP) PO ONE (06:54)
[2018-10-17] MEDS: ACETAMINOPHEN 325 MG TABLET (FP) PO PRN (07:24)
[2018-10-17] MEDS ORDERED: REGADENOSON 0.4 MG/5 ML PRE-FILLED SYRINGE IVPUSH ONE ×2 (10:11→10:15)
[2018-10-17] MEDS: CLOPIDOGREL BISULFATE 75 MG TABLET (FP) PO SCH (11:37)
[2018-10-17] MEDS: AZITHROMYCIN 250 MG TABLET PO SCH (11:37)
[2018-10-17] MEDS: ASPIRIN 81 MG CHEWABLE TABLETS PO SCH (11:37)
[2018-10-17] MEDS: EMTRICITABINE 200MG/TENOFOVIR 300MG PO SCH (11:38)
[2018-10-17] MEDS: DARUNAVIR 800 MG/COBICISTAT 150MG TABLET PO SCH (11:38)
[2018-10-17] MEDS: ENOXAPARIN NA (PORCINE) 40 MG/0.4 ML DISP.SYRIN SQ SCH (11:38)
--- NOTE | 2018-10-17 12:21 | PN ---
Progress Note (short form) - Note Progress Note: s: no chest pain, palps, dizziness, lightheadedness. Current Medications Acetaminophen (Tylenol -) 650 mg PO Q6H PRN PRN Reason: PAIN LEVEL 6-10 Last Admin: 10/17/18 07:24 Dose: 650 mg Aspirin (Asa -) 81 mg PO DAILY [facility] Last Admin: 10/17/18 11:37 Dose: 81 mg Atorvastatin Calcium (Lipitor -) 40 mg PO HS [facility] Last Admin: 10/16/18 21:35 Dose: 40 mg Azithromycin (Zithromax -) 500 mg PO DAILY [facility] Last Admin: 10/17/18 11:37 Dose: 500 mg Clopidogrel Bisulfate (Plavix -) 75 mg PO DAILY [facility] Last Admin: 10/17/18 11:37 Dose: 75 mg Emtricitabine/Tenofovir (Truvada) 1 tab PO DAILY [facility] Last Admin: 10/17/18 11:38 Dose: 1 tab Enoxaparin Sodium (Lovenox -) 40 mg SQ DAILY [facility] Last Admin: 10/17/18 11:38 Dose: 40 mg Vital Signs Period Temp Pulse Resp BP Sys/Lopez Pulse Ox Last 24 Hr 97.3 F-99.1 F 67-84 18-18 103-144/55-79 94-96 Constitutional: Yes: No Distress, Calm Eyes: Yes: Conjunctiva Clear, EOM Intact HENT: Yes: Atraumatic, Normocephalic Neck: Yes: Supple, Trachea Midline Respiratory: Yes: Regular, Wheezes (diffuse expiratory wheezes) Gastrointestinal: Yes: Normal Bowel Sounds, Soft Cardiovascular: Yes: Regular Rate and Rhythm JVD: No Carotid Bruit: No PMI: Non-Displaced Heart Sounds: Yes: S1, S2 Murmur: No: Systolic Murmur Musculoskeletal: No: Back Pain Extremities: No: Cold Edema: No Peripheral Pulses WNL: Yes Peripheral Pulses: 2+ Left Doralis Pedis, 2+ Right Dorsalis Pedis Integumentary: No: Jaundice Neurological: Yes: Alert, Oriented Psychiatric: No: Agitated Assessment/Plan EKG: sinus tachycardia, no ischemic changes CTA chest: prominent central arteries suggesting pulm HTN, mild chronic lung dz bibasilar atelectasis, no PE echo 09/2018 nl LV function, tr TR tele: sinus 53F h/o HIV, opiate abuse, DVT, asthma, DM, HLD p/w alt mental status, hypoxia Elevated trop - 1.5 ->1.75->1.5 flat trend; CK/CKMB elevated however nl index - EKG no ischemic changes - likely demand ischemia in setting of acute hypoxemic resp failure, rhabdo - continue plavix as this is a chronic medication for her - echo nl LV function - stress test done today, report pending. if benign findings, no further cardiac workup as inpatient acute resp failure, alt mental status - CTA chest no PE, infiltrate - may be 2/2 to opiate abuse - improving with narcan - elevated CK - concern for rhabdo - manage per primary hx blood clots, ?PAD - unclear history - reportedly on plavix at home for this - may be history of PAD, which would explain plavix (has not been on AC before) , patient unsure of details - continue plavix, obtain prior records asthma - manage per primary HIV - ID consulted DM - manage per primary
[2018-10-17 15:07] VITALS: BP 119/65; PULSE 96; TEMP 98.5
--- NOTE | 2018-10-17 15:59 | DS ---
Physical Exam: SUBJECTIVE: Patient seen and examined at bedside this morning. Patient denies acute complaints. OBJECTIVE: Vital Signs Period Temp Pulse Resp BP Sys/Lopez Pulse Ox Last 24 Hr 98.1 F-99.1 F 69-96 16-18 103-144/55-79 94-96 PHYSICAL EXAM GENERAL: Patient is awake, alert, in no acute distress. HEAD: Normocephalic, atraumatic. EYES: PERRLA. Extraocular movements intact without nystagmus. Conjunctiva non- injected bilaterally. No jaundice. EARS, NOSE, THROAT: Oropharynx clear without exudates. Moist mucous membranes. NECK: Supple without lymphadenopathy, or JVD. LUNGS: Breath sounds equal, clear to auscultation bilaterally. No wheezes, and no crackles. No accessory muscle use. HEART: Regular rate and rhythm, normal S1 and S2 without murmur, rub or gallop. ABDOMEN: Soft, not distended, nontender to light and deep palpation x4 quadrants. No guarding, no rebound tenderness. Normoactive bowel sounds x4 quadrants. MUSCULOSKELETAL: Normal range of motion at all joints. No bony deformities or tenderness. UPPER EXTREMITIES: 2+ radial pulses bilaterally, warm, well-perfused. No cyanosis. No clubbing. LOWER EXTREMITIES: 2+ dorsalis pedis pulses bilaterally, warm, well-perfused. No calf tenderness, no peripheral edema bilaterally NEUROLOGICAL: Cranial nerves II-XII intact. Patient freely moves all 4 extremities equally. No gross focal deficits. PSYCHIATRIC: Appropriate mood and affect upon my encounter. SKIN: Warm, dry. No rashes or lesions noted. LABS Laboratory Results - last 24 hr 10/17/18 10/17/18 05:30 05:30 WBC 8.4 RBC 4.51 Hgb 14.5 Hct 43.2 MCV 95.7 MCH 32.2 MCHC 33.7 RDW 12.7 Plt Count 220 D MPV 8.5 Sodium 142 Potassium 3.4 L Chloride 104 Carbon Dioxide 30 Anion Gap 8 BUN 8 Creatinine 0.5 L Creat Clearance w eGFR 129.06 Random Glucose 79 Calcium 8.6 HOSPITAL COURSE: Date of Admission:10/14/18 Date of Discharge: 10/17/18 Patient is a 53 year old female with history of HIV (on Symtuza), polysubstane abuse (oxycodone, heroine -snorted), prior reported DVT, asthma, diabetes mellitus, hyperlipidemia, major depressive disorder, post traumatic stress disorder, presents from [facility] after being found poorly responsive and hypoxic. Acute metabolic encephalopathy likely secondary to methadone overdose. Patient was given narcan 0.4mg x2 which significantly improved patient's mentation. Methadone was held, due to patients somnolence. CT head negative for intracranial hemorrhage. Chest radiograph upon admission showed no acute infiltrates. CTA negative for pulmonary embolism. Influenza A/ B negative. Acute hypoxic respiratory failure likely econdary to bronchitis. Patient completed Azithromycin course. Patient was evaluated by infectious disease, and continued on HAART therapy. Patient had Troponinemia peaking at 1.76. Per cardiology recommendations, she was started on aspirin, plavix, and therapeutic sanchez lovenox. Cardiology consult discussed troponinemia likely secondary to demand ischemia; Lovenox was discontinued. Patient had grossly normal cardiac ECHO, and cardiac stress test. Patient had completed methadone taper, and was no longer in withdrawal. Patient discharged home to follow up with primary care physician, and rda. Counselled regarding continuing with outpatient drug rehab, to assist in drug abstinence. Minutes to complete discharge: 35 Discharge Summary Reason For Visit: OPIOID DEPENDENCE WITH WITHDRAWL,ELEVATED TROPONIN Current Active Problems Altered mental state (Acute) Hypoxia (Acute) Pneumonia (Acute) HIV disease (Chronic) Condition: Stable - Instructions Diet, Activity, Other Instructions: You were admitted to the hospital due to altered mental status, and poor oxygenation. You were treated with medication to reverse the effects of the opiate medications, in addition to breathing treatments which improved your breathing. Your heart enzymes were noted to be elevated. You were evaluated by the rda and had an echocardiogram and stress test which were grossly normal. You are being discharged home. We have made some changes to your medications: We have discontinued your Trazodone, Zolpidem, and Tizanidine as these medications may make you more drowsy. Discuss reinstating any of these medications with your primary care physician. You have finished your Methadone taper, and will no longer take this medication. DO NOT take any more opiate medications. It is strongly recommended that you follow up with drug rehabilitation program as an outpatient to facilitate abstinence from opiate medications. Follow up with your primary care physician within two- three days after discharge. Follow up with your rda within one week of discharge. A referral to Dr. Montana has been provided. Return to the nearest Emergency Department if you experience any worsening symptoms, subjective fevers, chills, shortness of breath, chest pain, palpitations, abdominal pain, nausea, vomiting. Referrals: Jasper Montana MD [Staff Physician] - darrin carrion [Other] - 10/19/18 Disposition: HOME - Home Medications Comprehensive Discharge Medication List: Ambulatory Orders Albuterol Sulfate Inhaler - [Ventolin HFA Inhaler -] 2 inh PO Q4H 10/11/18 Cholecalciferol (Vitamin D3) [Vitamin D3] 2,000 unit PO DAILY 10/11/18 Clopidogrel Bisulfate [Plavix] 75 mg PO DAILY 10/11/18 Darunavir/Cob/Emtri/Tenof Alaf [Symtuza [id number] mg Tab] 1 each PO DAILY 10/11/18 Metformin HCl [Metformin HCl ER] 500 mg PO DAILY 10/11/18 Multivitamin,Therapeutic [Thera] 1 each PO DAILY 10/11/18 Atorvastatin Ca [Lipitor] 20 mg DAILY 10/16/18 Estrogen,Con/M-Progest Acet [Prempro 0.45-1.5 mg Tablet] 1.5 mg DAILY 10/16/18 Folic Acid 1 mg DAILY 10/16/18 Ropinirole HCl 2 mg HS 10/16/18 This patient is new to me today: No Emergency Visit: Yes ED Registration Date: 10/14/18 Care time: The patient presented to the Emergency Department on the above date and was hospitalized for further evaluation of their emergent condition. Critical Care patient: No - Discharge Referral Referred to [facility] Med P.C.: No
--- NOTE | 2018-10-17 16:17 | PN ---
Teaching Attending Note Name of Resident: Paco Swartz ATTENDING PHYSICIAN STATEMENT I saw and evaluated the patient. I reviewed the resident's note and discussed the case with the resident. I agree with the resident's findings and plan as documented. SUBJECTIVE: No chest pain/palpitations/SOB/lightheadedness OBJECTIVE: Afebrile, Hemodynamically Stable. Last Vital Signs Temp Pulse Resp BP Pulse Ox 98.5 F 96 H 16 119/65 94 L 10/17/18 13:05 10/17/18 13:05 10/17/18 13:05 10/17/18 13:05 10/17/18 10:00 HEENT - Atraumatic, Normocephalic. Heart - S1, S2, RRR Lungs - clear to auscultation. Abdomen - Soft, non-tender. Bowel Sounds normal. Laboratory Results - last 24 hr 10/17/18 10/17/18 05:30 05:30 WBC 8.4 RBC 4.51 Hgb 14.5 Hct 43.2 MCV 95.7 MCH 32.2 MCHC 33.7 RDW 12.7 Plt Count 220 D MPV 8.5 Sodium 142 Potassium 3.4 L Chloride 104 Carbon Dioxide 30 Anion Gap 8 BUN 8 Creatinine 0.5 L Creat Clearance w eGFR 129.06 Random Glucose 79 Calcium 8.6 Current Medications Generic Name Dose Route Start Last Admin Trade Name Freq PRN Reason Stop Dose Admin Acetaminophen 650 mg 10/15/18 17:33 10/17/18 07:24 Tylenol - PO 650 mg Q6H PRN Administration PAIN LEVEL 6-10 Aspirin 81 mg 10/15/18 10:00 10/17/18 11:37 Asa - PO 81 mg DAILY SMITH Administration Atorvastatin Calcium 40 mg 10/14/18 22:00 10/16/18 21:35 Lipitor - PO 40 mg HS SMITH Administration Azithromycin 500 mg 10/14/18 13:30 10/17/18 11:37 Zithromax - PO 500 mg DAILY SMITH Administration Clopidogrel Bisulfate 75 mg 10/15/18 10:00 10/17/18 11:37 Plavix - PO 75 mg DAILY SMITH Administration Emtricitabine/Tenofovir 1 tab 10/14/18 13:30 10/17/18 11:38 Truvada PO 1 tab DAILY SMITH Administration Enoxaparin Sodium 40 mg 10/16/18 15:45 10/17/18 11:38 Lovenox - SQ 40 mg DAILY SMITH Administration ASSESSMENT AND PLAN:. 53 year old female with history of HTN, DM 2, HIV, opiate dependence who was sent to the ED from [facility] (where she was undergoing opiate detox) for altered mental status and hypoxia. 1. Acute Hypoxic Respiratory Failure and Sepsis secondary to acute bronchitis - resolved. Resolved, completed Zithromax course 2. Acute metabolic +/- toxic encephalopathy sec to above +/- substance abuse - resolved. 3. Elevated troponin, possible demand ischemia sec to Sepsis - NM Stress test negative for reversible ischemia, normal EF Evaluated by Cardiology - to continue Aspirin and Plavix (takes for unclear reasons) with Cardio follow up as out-patient. 4. Opiate withdrawal - completed methadone detox. No signs of ongoing withdrawal. 5. HIV - Continue Truvada, Prezcobix 6. DM 2 - resume Metformin on discharge 7. HTN - not on medication currently. BP at goal. 8. Hypokalemia - repleted. 9. Reported Hx of DVT - Duplex currently negative. PCP follow up. Medically stable and cleared from cardiac perspective for discharge. Counselled regarding substance abuse and importance of follow up.
== END 2018-10-17 17:17 | disposition home or self-care (01) | DRG 812 ==
LOC: JER 23:56 → JERBED 10-14 03:07 → J4S 10-14 12:06
PROVIDERS: ADMIT Internal Medicine
DX: T40.3X1A Poisoning by methadone, accidental (unintentional), initial encounter (principal); F11.23 Opioid dependence with withdrawal; E11.9 Type 2 diabetes mellitus without complications; E78.5 Hyperlipidemia, unspecified; F39 Unspecified mood [affective] disorder; E87.6 Hypokalemia; I45.10 Unspecified right bundle-branch block; J98.11 Atelectasis; M62.82 Rhabdomyolysis; R00.0 Tachycardia, unspecified; F43.10 Post-traumatic stress disorder, unspecified; J96.01 Acute respiratory failure with hypoxia; J96.02 Acute respiratory failure with hypercapnia; G93.41 Metabolic encephalopathy; J20.9 Acute bronchitis, unspecified; I24.8 Other forms of acute ischemic heart disease; J45.909 Unspecified asthma, uncomplicated; E87.1 Hypo-osmolality and hyponatremia; F17.210 Nicotine dependence, cigarettes, uncomplicated; E66.9 Obesity, unspecified; Z68.29 Body mass index [BMI] 29.0-29.9, adult; R50.9 Fever, unspecified; A41.89 Other specified sepsis; R41.82 Altered mental status, unspecified; Z88.0 Allergy status to penicillin; Z21 Asymptomatic human immunodeficiency virus [HIV] infection status; Z86.718 Personal history of other venous thrombosis and embolism
CPT/HCPCS: 36415; 70450-TC; 71045-TC-FY; 71275-TC; 78452-TC; 80048; 80053; 80061; 80307; 81003; 82140; 82550; 82553; 82803; 82962; 83036; 83605; 83615; 83721; 83735; 83880; 84100; 84484; 85025; 85027; 85610; 85730; 86359; 86360; 86850; 86900; 86901; 87040; 87086; 87633; 87804; 93005; 93010; 93017; 93306-TC; 93970-TC; 99284-25; A9502; J0131; J2785; J7030